=== PATIENT | female | born 1970 | race Caucasian/White ===

== ENCOUNTER 2016-04-22 22:11 | Inpatient (IN) | payer OTHER ==
--- NOTE | ~2016-04-22 | CO ---
Unit #: [id number] #: [id number] Patient: ALISA GAUTHIER [id number] [place] [address] [id number] I MR#: [id number] NAME: ALISA GAUTHIER ROOM: P178 Age: 45 Sex: F Admission Date: 04/22/2016 : 1970 Attending Physician: Rodrick Torres M.D. Primary Care Physician: Primary Care Physician No Consultation Date: 04/23/2016 CONSULTATION REPORT SUBJECTIVE Alisa is a 45-year-old who had reported to nursing staff that she was vomiting blood and had blood in her stools. Nursing staff did not confirm any of this. When I spoke to Ms. Bentley, she denied all of these concerns. Nursing staff can let us know if she has any further complaints/concerns. Dictated by... Stella Garcia P.A.-C. for [place]/jonathon TD: 04/26/2016 20:07 JOB #: [id number] CONSULTATION REPORT X Stella Garcia CONSULTATION REPORT
--- NOTE | ~2016-04-22 | PN ---
Unit #: [id number] #: [id number] Patient: ALISA GAUTHIER [id number] [facility] [address] [place] [address] [id number] I MR#: [id number] NAME: ALISA GAUTHIER. ROOM: P178 Age: 45 Sex: F Admission Date: 04/22/2016 : 1970 Attending Physician: Rodrick Torres M.D. Admitting Physician: Rodrick Torres M.D. Primary Care Physician: Primary Care Physician Marlyn ALLEN PROGRESS NOTES DATE 04/25/2016 DISCUSSION Ms. Goins is a 45-year-old white female with mood disorder and substance abuse who was seen today and chart was reviewed and case was discussed with the staff. She has been anxious, withdrawn though has not shown any agitation, irritability and has been calm and cooperative with treatment recommendations as she has been taking medications and tolerating them fairly well with no reported side effects. MENTAL STATUS EXAMINATION Middle-aged white female who was casually dressed with fair personal hygiene, appears to be in no acute distress or discomfort. She was awake and alert on interaction with intact orientation. Her mood was anxious with congruent affect. She denies any suicidal or homicidal ideations. Her insight and judgement remains slightly impaired. TREATMENT PLAN 1. We will continue her on her current medications and treatment protocol. We will monitor her response to the medications and make further adjustments as needed. 2. We will continue to follow up. Dictated by... [place]ros/candelario TD: 04/27/2016 02:07 JOB #: [id number] Unit #: [id number] #: [id number] Patient: ALISA GAUTHIER ALEJANDRO PROGRESS NOTES X Rodrick Torres MD PROGRESS NOTE
--- NOTE | ~2016-04-22 | DS ---
Unit #: [id number] #: [id number] [facility]: [facility] [id number] [facility] [address] [place] [address] [id number] I MR#: [id number] NAME: ALISA GAUTHIER ROOM: 78 Age: 45 Sex: F Admission Date: 04/22/2016 : 1970 Discharge Date: 04/26/2016 Attending Physician: Rodrick Torres M.D. Primary Care Physician: Primary Care Physician No DISCHARGE SUMMARY IDENTIFYING DATA Ms. Gauthier is a 45-year-old single white female who was self-referred to the hospital. DISCHARGE DIAGNOSES Psychiatric: Major depressive disorder, recurrent, moderate, without psychotic features; alcohol dependence, moderate and acute withdrawals; cannabis abuse, moderate. Medical: Hepatitis C. Stressors: Moderate psychosocial stressors. HISTORY OF PRESENT ILLNESS Please see initial psychiatric evaluation for details. PAST PSYCHIATRIC HISTORY Please see initial psychiatric evaluation for details. PAST MEDICAL HISTORY Please see initial psychiatric evaluation for details. HOSPITAL COURSE The patient was admitted to the adult chemical dependency and psychiatric unit at [facility] nadia Savage and was oriented to the hospital environment. Routine p.r.n. medications were initiated, and she was started on alcohol detox protocol and was closely monitored. She was taking the medications regularly and was tolerating them fairly well and was able to show a decent therapeutic response and was able to come out of the detox without any complications and was willing to continue treatment on an outpatient basis and as such, it was decided that she will be discharged home and will continue treatment on an outpatient basis. DISCHARGE MEDICATIONS Celexa 40 mg a day for depression. DISCHARGE CONDITION Stable. PROGNOSIS Fair. Dictated by... Rodrick Torres M.D. Unit #: [id number] #: [id number] Patient: ALISA GAUTHIER IAA/modl TD: 04/26/2016 06:57 JOB #: [id number] DISCHARGE SUMMARY X Rodrick Torres MD X DISCHARGE SUMMARY
--- NOTE | ~2016-04-22 | PA ---
Unit #: [id number] #: [id number] Patient: ALISA GAUTHIER [id number] [facility] [address] [place] [address] [id number] I MR#: [id number] NAME: ALISA GAUTHIER. ROOM: P178 Age: 45 Sex: F Admission Date: 04/22/2016 : 1970 Date of Assessment: Attending Physician: Rodrick Torres M.D. Admitting Physician: Rodrick Torres M.D. Primary Care Physician: Primary Care Physician No PSYCHIATRIC ASSESSMENT DATE OF SERVICE 04/23/2016. IDENTIFYING DATA Ms. Gauthier is a 45-year-old single white female who is a resident of [place], [place] and was self-referred to the hospital and upon presentation was accompanied by her friend. CHIEF COMPLAINT "I'm depressed. I'm having suicidal thoughts." HISTORY OF PRESENT ILLNESS Ms. Gauthier is a 45-year-old white female with history of mood disorder, who was brought to the hospital by her sister for suicidal ideation and plan to either cut her wrist or shoot herself with a gun. The patient reports that she relapsed on alcohol after 97 days of being sober and that she relapsed because she has no support system. She reports significant depressive symptoms, disturbed sleep, psychomotor retardation, poor energy level, feelings of hopelessness and helplessness, and suicidal ideations with intent and plan and as such, recommendation for inpatient level of care for safety and stabilization was made and the patient was stepped up to the inpatient unit. SUBSTANCE ABUSE HISTORY The patient reports extensive history of substance abuse and dependence including experimentation with methamphetamine, opiates, and cannabis and alcohol and currently alcohol has been her drug of choice. She reports that she has been drinking a fifth of liquor a day and has also been smoking cannabis along with that. PAST PSYCHIATRIC HISTORY The patient has had history of inpatient and outpatient psychiatric and chemical dependency treatment. Review of the medical records indicate that she has been diagnosed and treated for mood disorder and is currently on Celexa 40 mg a day. PAST MEDICAL HISTORY Hepatitis C. ALLERGIES Penicillin. PERSONAL AND SOCIAL HISTORY Unit #: [id number] #: [id number] Patient: ALISA GAUTHIER A 45-year-old white female who reports that she is single, unemployed, and lives at home with her sister and has poor social support system. MENTAL STATUS EXAMINATION Middle-aged white female who was casually dressed with fair personal hygiene, appears to be in no acute distress or discomfort. She was awake and alert on interaction with intact orientation to time, place, and person. Her mood was anxious and depressed with a congruent affect. Her speech was slow and goal directed. She reports having suicidal ideations, but denies any homicidal ideations, and also denies any auditory or visual hallucinations. Her insight and judgment remain significantly impaired. DIAGNOSTIC IMPRESSION Psychiatric: Major depressive disorder, recurrent, moderate, without psychotic features; alcohol dependence, moderate and acute withdrawals; cannabis abuse, moderate. Medical: Hepatitis C. Stressors: Moderate psychosocial stressors. TREATMENT PLAN 1. The patient has presented with history of substance abuse and mood disorder, and has been decompensating and will need inpatient hospitalization for detoxification, and safety, and stabilization. We will start her back on her home medications and we will also start her on alcohol detox protocol. We will start her back on Celexa as well. 2. Supportive therapy was provided to the patient. 3. Safe, structured, and nourishing environment will be provided. ESTIMATED LENGTH OF STAY 5 to 7 days. ABILITY TO HELP SELF Limited. WILLINGNESS TO HELP SELF The patient appears to be willing to help self. STRENGTHS 1. Communicative. 2. Cooperative. PROBLEMS 1. Chronic dysphoric symptoms. 2. Chronic chemical dependency. 3. Poor social support system. DISCHARGE CRITERIA This will be contingent upon the patient's ability to go through detox without having any significant withdrawal symptoms as well as her ability to stay safe to herself, particularly after discharge from the hospital. Dictated by... [place]ros/jonathon TD: 04/23/2016 12:42 Unit #: [id number] #: [id number] Patient: ALISA GAUTHIER JOB #: [id number] PSYCHIATRIC ASSESSMENT X Rodrick Torres MD X PSYCHIATRIC ASSESSMENT
--- NOTE | ~2016-04-22 | HP ---
Unit #: [id number] #: [id number] Patient: ALISA GAUTHIER [id number] [place] [address] [id number] I MR#: [id number] NAME: ALISA GAUTHIER. ROOM: P178 Age: 45 Sex: F Admission Date: 04/22/2016 : 1970 Attending Physician: Rodrick Torres M.D. Admitting Physician: Rodrick Torres M.D. Primary Care Physician: Primary Care Physician No HISTORY AND PHYSICAL HISTORY OF PRESENT ILLNESS Alisa is a 45 year old admitted to [facility] because of her abuse of alcohol. PAST MEDICAL HISTORY 1. Long history of alcohol abuse. 2. Hepatitis C. 3. History of cervical dysplasia. PAST SURGICAL HISTORY Nothing reported. ALLERGIES Penicillin. SOCIAL HISTORY Smokes 1 pack per day. Drinks a fifth of vodka on a daily basis. Denies history of poly-illicit substance abuse. FAMILY HISTORY Medically noncontributory. REVIEW OF SYSTEMS CONSTITUTIONAL: No fever or chills. HEENT: Denies any sore throat, ear pain or runny nose. CARDIOVASCULAR: Denies chest pain, irregular heart rhythm or palpitations. CHEST: Denies shortness of breath or cough. No hemoptysis. GASTROINTESTINAL: Denies nausea, vomiting, diarrhea or chronic constipation. ENDOCRINE: Denies history of increased thirst or urination. No recent significant weight loss or gain. GENITOURINARY: Denies dysuria, frequency, or hematuria. SKIN: Denies any rashes. HEMATOLOGIC: Denies history of increased bleeding or bruising. MUSCULOSKELETAL: Denies any hot, swollen joints. No generalized muscle pain. NEUROLOGIC: Denies problems with vision or speech. No frequent, severe headaches. No numbness, tingling or weakness in any extremities. Denies loss of bladder or bowel control. CURRENT MEDICATIONS 1. Detox protocol. 2. Celexa 40 mg daily. Unit #: [id number] #: [id number] Patient: ALISA GAUTHIER PHYSICAL EXAMINATION GENERAL: Alert, well-nourished, in no apparent distress. VITAL SIGNS: Blood pressure 113/56, heart rate 80, respirations 16, temperature 98.6. SKIN: Warm and dry without rash or lesion. HEENT: Normocephalic. TMs not viewed. Oral and nasal passages clear. Conjunctivae clear. PERRLA. EOMs intact. NECK: Supple without lymphadenopathy or thyromegaly. HEART: Regular rate and rhythm without murmur. LUNGS: Clear. ABDOMEN: Soft, nontender. : Not done. EXTREMITIES: No evidence of cyanosis, clubbing or edema. Moves all without focal deficit. NEUROLOGICAL: Unable to complete extended exam. She does move all extremities without focal deficit. Hand lead setter is equal and gait is normal. IMPRESSION Psychiatric admission. RECOMMENDATIONS PSYCHIATRIC: Per psychiatrist. MEDICAL: See no contraindications to participate in facility's activities. MEDICAL PROGNOSIS Good. MEDICAL CONDITION Stable. Dictated by... Stella Garcia P.A.-C. for [place]/seble TD: 04/23/2016 19:57 JOB #: [id number] HISTORY AND PHYSICAL X Stella Garcia X HISTORY AND PHYSICAL
--- NOTE | ~2016-04-22 | PN ---
Unit #: [id number] #: [id number] Patient: ALISA GAUTHIER [id number] [facility] [address] [place] [address] [id number] I MR#: [id number] NAME: ALISA GAUTHIER. ROOM: P178 Age: 45 Sex: F Admission Date: 04/22/2016 : 1970 Attending Physician: Rodrick Torres M.D. Admitting Physician: Rodrick Torres M.D. Primary Care Physician: Primary Care Physician Marlyn ALLEN PROGRESS NOTES DATE April 24, 2016 DISCUSSION Ms. Gauthier is a 45-year-old white female, who was seen today and chart was reviewed and the case was discussed with the staff. She has been anxious, withdrawn, and rather seclusive to herself. She appears to be in distress and discomfort. Meanwhile, she has been taking the medications and tolerating them fairly well with no reported side effects. MENTAL STATUS EXAMINATION Middle-aged white female, who was casually dressed with fair personal hygiene and appears to be in no acute distress or discomfort. The patient was awake and alert on interaction with intact orientation. Her mood was anxious and depressed with a congruent affect. Her speech is slow and goal-directed. She denies any suicidal or homicidal ideations, and also denies any auditory or visual hallucinations. Her insight and judgment remain slightly impaired. TREATMENT PLAN 1. We will continue her on her current medications and treatment protocol, and will monitor her response to the medications, and make further adjustments as needed. 2. We will continue to followup. Dictated by... [place] Barros/sagar TD: 04/26/2016 07:46 JOB #: [id number] Unit #: [id number] #: [id number] Patient: ALISA GAUTHIERALEX PROGRESS NOTES X Rodrick Torres MD PROGRESS NOTE
[2016-04-23 12:29] LABS: BASOPHIL% 0.5 % (0-2.5); EOSINOPHIL# 0.1 X10e3 (0-0.7); EOSINOPHIL% 1.4 % (0.0-7.0); HEMATOCRIT 38.9 % (35.0-45.0); LYMPHOCYTE# 1.6 X10e3 (1.0-3.5); LYMPHOCYTE% 16.6 % (17.0-45.0); MEAN CELL VOLUME 85.2 FL (83-96); MEAN CORPUSCULAR HEMOGLOBIN 28.4 PG (28-34); MEAN CORPUSCULAR HGB CONC 33.4 g/dL (30-36); MEAN PLATELET VOLUME 8.7 FL (6.5-11.5); MONOCYTE# 0.6 X10e3 (0-1.0); NEUTROPHIL# 7.3 X10e3 (1.5-7.1); NEUTROPHIL% 75.5 % (40-75); PLATELET COUNT 294 X10e3 (140-420); RED BLOOD COUNT 4.57 X10e (3.90-5.30); RED CELL DISTRIBUTION WIDTH 13.9 % (11.0-15.5); WHITE BLOOD COUNT 9.7 X10e3 (4.0-10.5)
[2016-04-23 12:39] LABS: DIFF IND NO
[2016-04-23 12:44] LABS: ALBUMIN SERUM 3.7 g/dL (3.5-5.0); ALKALINE PHOSPHATASE 86 U/L (32-92); ALT (SGPT) 287 U/L (10-40); AST (SGOT) 252 U/L (10-42); BILIRUBIN,TOTAL 0.6 mg/dL (0.2-2.0); BLOOD UREA NITROGEN 11 mg/dL (9-23); CARBON DIOXIDE 28 mmol/L (22-31); CHLORIDE 104 mmol/L (100-111); CREATININE SERUM 0.5 mg/dL (0.6-1.4); GLOM FILT RATE Estimated ABOVE60 mL/min (>60); GLUCOSE FASTING 78 mg/dL (70-110); POTASSIUM 4.1 mmol/L (3.5-5.1); PROTEIN TOTAL SERUM 6.9 g/dL (6.0-8.3); SODIUM 137 mmol/L (135-145)
[2016-04-23 12:53] LABS: THYROID STIMULATING HORMONE 0.76 uIU/ml (0.34-5.60)
[2016-04-23 13:00] LABS: FREE THYROXIN (T4) 1.03 ng/dL (0.58-1.64)
== END 2016-04-26 09:33 | disposition home or self-care (01) | DRG 885 ==
LOC: P1E 22:11
PROVIDERS: Psychiatry & Neurology Psychiatry
PROC: HZ2ZZZZ Detoxification Services for Substance Abuse Treatment (ICD-10-PCS; principal; 2016-04-22)
DX: F33.1 Major depressive disorder, recurrent, moderate (principal); F10.239 Alcohol dependence with withdrawal, unspecified; F12.10 Cannabis abuse, uncomplicated; B19.20 Unspecified viral hepatitis C without hepatic coma; F17.200 Nicotine dependence, unspecified, uncomplicated; Z88.0 Allergy status to penicillin
CPT/HCPCS: 80053; 84439; 84443; 85025; 86592; J2550

== ENCOUNTER 2016-05-09 19:59 | Inpatient (IN) | payer MEDICAID ==
--- NOTE | ~2016-05-09 | PN ---
Unit #: [id number] #: [id number] Patient: ALISA GAUTHIER [id number] [facility] [address] [place] [address] [id number] I MR#: [id number] NAME: ALISA GAUTHIER. ROOM: P176 Age: 45 Sex: F Admission Date: 05/09/2016 : 1970 Attending Physician: Rodrick Torres M.D. Admitting Physician: Rodrick Torres M.D. Primary Care Physician: Primary Care Physician Marlyn CARRASQUILLO NOTES DATE OF SERVICE 05/13/2016 DISCUSSION Ms. Gauthier is a 45-year-old white female who was seen today. Chart was reviewed and case was discussed with staff. She has been anxious, withdrawn, and has not shown any agitation or irritability and has been cooperative with treatment recommendations as she has been taking the medications and tolerating them fairly well. MENTAL STATUS EXAMINATION Middle-aged white female who is casually dressed with fair personal hygiene, appears to be in no acute distress or discomfort. She was awake and alert on interaction with intact orientation. Her mood is anxious with congruent affect. Speech is slow and goal-directed. She reports having suicidal ideations but denies any homicidal ideations and also denies any auditory or visual hallucinations. Her insight and judgment remain slightly impaired. TREATMENT PLAN 1. We will continue her on her current medications and treatment protocol. We will monitor her response to the medications and make further adjustments as needed. 2. We will continue to follow up. Dictated by... [place]ros/karang TD: 05/14/2016 09:17 JOB #: [id number] Unit #: [id number] #: [id number] Patient: ALISA GAUTHIER [facility] PROGRESS NOTES X Rodrick Torres MD PROGRESS NOTE
--- NOTE | ~2016-05-09 | PN ---
Unit #: [id number] #: [id number] Patient: ALISA GAUTHIER [id number] [facility] [address] [place] [address] [id number] I MR#: [id number] NAME: ALISA GAUTHIER ROOM: P180 Age: 45 Sex: F Admission Date: 05/09/2016 : 1970 Attending Physician: Rodrick Torres M.D. Admitting Physician: Rodrick Torres M.D. Primary Care Physician: Primary Care Physician Marlyn CARRASQUILLO NOTES DATE OF SERVICE: 05/11/2016 SUBJECTIVE Ms. Shearer is a 45-year-old white female, who was seen today and chart was reviewed, and case was discussed with the staff. She has been anxious, withdrawn, though has not shown any agitation or irritability, and has been cooperative with treatment recommendations as she has been taking medications and has been coming to therapy groups and has been participating. MENTAL STATUS EXAMINATION Middle-aged white female, who was casually dressed with fair personal hygiene, appears to be in no acute distress or discomfort. She was awake and alert on interaction with intact orientation. Her mood was anxious with a congruent affect. She denies any suicidal or homicidal ideation. Her insight and judgment remain slightly impaired. TREATMENT PLAN We will continue her on her current treatment protocol. We will monitor her response make further adjustments as needed. Dictated by... [place] Barros/jonathon TD: 05/12/2016 06:53 JOB #: [id number] ALEJANDRO CARRASQUILLO NOTES X Rodrick Torres MD PROGRESS NOTE
--- NOTE | ~2016-05-09 | PN ---
Unit #: [id number] #: [id number] Patient: ALISA GAUTHIER [id number] [facility] [address] [place] [address] [id number] I MR#: [id number] NAME: ALISA GAUTHIER. ROOM: P180 Age: 45 Sex: F Admission Date: 05/09/2016 : 1970 Attending Physician: Rodrick Torres M.D. Admitting Physician: Rodrick Torres M.D. Primary Care Physician: Primary Care Physician Marlyn CARRASQUILLO NOTES DATE 05/12/2016 DISCUSSION Ms. Gauthier is a 45-year-old white female who was seen today and chart was reviewed and case was discussed with the staff. She was not feeling good and has been complaining of being anxious, depressed and suicidal and (1)____ uncomfortable and unable to sleep at night and was seemed to be shaky, restless and rubbing all over her body and unable to sit still and exhibiting a lot of anxiety. MENTAL STATUS EXAMINATION Middle-aged white female who was casually dressed with fair personal hygiene, appears to be in no acute distress or discomfort. She was awake and alert on interaction with intact orientation. Her mood was anxious with congruent affect. Her speech was slow and goal-directed. She reports having suicidal ideation but denies any homicidal ideations. Also, denies any auditory or visual hallucinations. Her insight and judgement remains slightly impaired. TREATMENT PLAN 1. We will continue her on her current medications and treatment protocol. We will monitor her response and make further adjustments as needed. 2. We will continue to follow up. Dictated by... [place] Barros/candelario TD: 05/12/2016 21:40 JOB #: [id number] Unit #: [id number] #: [id number] Patient: ALISA GAUTHIER ALEJANDRO CARRASQUILLO NOTES X Rodrick Torres MD PROGRESS NOTE
--- NOTE | ~2016-05-09 | PN ---
Unit #: [id number] #: [id number] Patient: ALISA GAUTHIER [id number] [facility] [address] [place] [address] [id number] I MR#: [id number] NAME: ALISA GAUTHIER ROOM: P176 Age: 45 Sex: F Admission Date: 05/09/2016 : 1970 Attending Physician: Rodrick Torres M.D. Admitting Physician: Rodrick Torres M.D. Primary Care Physician: Primary Care Physician Marlyn CARRASQUILLO NOTES DATE OF SERVICE: 05/14/2016 SUBJECTIVE Ms. Gauthier is a 35-year-old white female, who was seen today and chart was reviewed, and case was discussed with the staff. She has been anxious, withdrawn, though has not shown any agitation or irritability, and has been cooperative with treatment recommendations and has been taking the medications and tolerating them fairly well with no reported side effects. MENTAL STATUS EXAMINATION Middle-aged white female, who was casually dressed with fair personal hygiene, appears to be in no acute distress or discomfort. She was awake and alert on interaction with intact orientation. Her mood was anxious with a congruent affect. She denies any suicidal or homicidal ideations, and also denies any auditory or visual hallucinations. Her insight and judgment remain slightly impaired. TREATMENT PLAN 1. We will continue her on her current medications and treatment protocol. We will monitor her response to the medications and make further adjustments as needed. 2. We will continue to follow up. Dictated by... [place] Barros/jonathon TD: 05/14/2016 23:37 JOB #: [id number] [facility] PROGRESS NOTES X Rodrick Torres MD PROGRESS NOTE
--- NOTE | ~2016-05-09 | DS ---
Unit #: [id number] #: [id number] [facility]: [facility] [id number] [facility] [address] [place] [address] [id number] I MR#: [id number] NAME: ALISA GAUTHIER ROOM: P176 Age: 45 Sex: F Admission Date: 05/09/2016 : 1970 Discharge Date: 05/17/2016 Attending Physician: Rodrick Torres M.D. Primary Care Physician: Primary Care Physician No DISCHARGE SUMMARY IDENTIFYING DATA Ms. Gauthier is a 45-year-old single white female, who is a resident of [place], [place], and was stepped up to the inpatient unit from the outpatient treatment program. DISCHARGE DIAGNOSES Psychiatric: Major depressive disorder, recurrent, moderate, without psychotic features; opioid abuse, moderate; alcohol abuse, moderate. Medical: None. Stressors: Moderate psychosocial stressors. HISTORY OF PRESENT ILLNESS Please see initial psychiatric evaluation for details. PAST PSYCHIATRIC HISTORY Please see initial psychiatric evaluation for details. PAST MEDICAL HISTORY Please see initial psychiatric evaluation for details. HOSPITAL COURSE The [facility] and was oriented to the hospital environment. Routine p.r.n. medications were initiated, and she was started back on her home medication and was seen to be exhibiting some significant depressive symptoms and rather had a complicated course of illness with persistent depression, anxiety, and medications were adjusted regularly and once she started showing a therapeutic response, it was decided that she will be discharged home and will continue treatment on an outpatient basis. DISCHARGE MEDICATIONS Prozac 40 mg a day for depression, Seroquel 200 mg at bedtime for depression, Neurontin 400 mg t.i.d. for anxiety. DISCHARGE CONDITION Stable. PROGNOSIS Fair. Dictated by... Rodrick Torres M.D. Unit #: [id number] #: [id number] Patient: ALISA GAUTHIER IAA/modl TD: 05/17/2016 07:01 JOB #: [id number] DISCHARGE SUMMARY X Rodrick Torres MD X DISCHARGE SUMMARY
--- NOTE | ~2016-05-09 | PA ---
Unit #: [id number] #: [id number] Patient: ALISA GAUTHIER [id number] [place] [address] [id number] I MR#: [id number] NAME: ALISA GAUTHIER ROOM: P180 Age: 45 Sex: F Admission Date: 05/09/2016 : 1970 Date of Assessment: 05/10/2016 Attending Physician: Rodrick Torres M.D. Admitting Physician: Rodrick Torres M.D. Primary Care Physician: Primary Care Physician No PSYCHIATRIC ASSESSMENT DATE OF SERVICE 05/10/2016. IDENTIFYING DATA Ms. Gauthier is a 45-year-old single white female who is a resident of [place], [place] and was recently discharged from care and is currently active in the intensive outpatient treatment program at [facility] and was self-referred to the hospital on a voluntary basis. CHIEF COMPLAINT "I'm going through a lot, I tried to cut myself to kill myself." HISTORY OF PRESENT ILLNESS Ms. Gauthier is a 45-year-old white female with history of mood disorder and substance abuse, who was brought to the hospital accompanied by her sister. Upon presentation, the patient reports increasing depression that she tried to kill herself and "my sister stopped me today, my niece was jumped away to all people, also family stressors going on, I'm currently going to the outpatient program here." The patient reports increasing depression, anxiety, disturbed sleep, psychomotor agitation, feelings of hopelessness and helplessness, and suicidal ideations with intent and plan. SUBSTANCE ABUSE HISTORY The patient reports history of alcohol, cannabis, opioids, and amphetamine abuse, and reports that she has been drinking a fifth of vodka a day with last use being a couple of weeks ago and has a history of opioid abuse, though reports that she has been clean for the last few months. PAST PSYCHIATRIC HISTORY The patient has had a history of multiple inpatient psychiatric hospitalizations at [facility], where she is currently active in the outpatient treatment program and has been diagnosed and treated for mood disorder and has been a combination of Prozac and trazodone. PAST MEDICAL HISTORY The patient's medical history is significant for hepatitis C. ALLERGIES Penicillin. PERSONAL AND SOCIAL HISTORY A 45-year-old white female who reports that she is single and lives at home with 2 sisters and has poor social support system. Unit #: [id number] #: [id number] Patient: ALISA GAUTHIER MENTAL STATUS EXAMINATION Middle-aged white female who was casually dressed with fair personal hygiene, appears to be in no acute distress or discomfort. She was awake and alert on interaction with intact orientation to time, place, and person. Her mood was anxious and depressed with a congruent affect. Her speech was slow and goal directed. She reports having suicidal ideation, but denies any homicidal ideations and also denies any auditory or visual hallucinations. Her insight and judgment remain significantly impaired. DIAGNOSTIC IMPRESSION Psychiatric: Major depressive disorder, recurrent, moderate, without psychotic features; opioid abuse, moderate; alcohol abuse, moderate. Medical: None. Stressors: Moderate psychosocial stressors. TREATMENT PLAN 1. The patient has presented with a history of substance abuse and mood disorder and has been decompensating and will need inpatient hospitalization for safety and stabilization. We will start her back on her home medications. We will adjust the medications and monitor her response. 2. Supportive therapy was provided to the patient. ESTIMATED LENGTH OF STAY 5 to 7 days. ABILITY TO HELP SELF Limited. WILLINGNESS TO HELP SELF The patient appears to be willing to help self. STRENGTHS 1. Communicative. 2. Cooperative. PROBLEMS 1. Chronic dysphoric symptoms. 2. Poor social support system. DISCHARGE CRITERIA This will be contingent upon the patient's ability to show resolution of her depression and anxiety as well as her ability to stay safe to herself, particularly after discharge from the hospital. Dictated by... New Barros/jonathon TD: 05/10/2016 23:36 JOB #: [id number] Unit #: [id number] #: [id number] Patient: ALISA GAUTHIER PSYCHIATRIC ASSESSMENT X Rodrick Torres MD PSYCHIATRIC ASSESSMENT
--- NOTE | ~2016-05-09 | TN ---
Unit #: [id number] #: [id number] Patient: ALISA GAUTHIER [id number] [facility] [address] [place] [address] [id number] I MR#: [id number] NAME: ALISA GAUTHIER ROOM: P176 Age: 45 Sex: F Admission Date: 05/09/2016 : 1970 Discharge Date: 05/17/2016 Attending Physician: Rodrick Torres M.D. Primary Care Physician: Primary Care Physician No LOC TRANSFER NOTE DATE OF SERVICE: 05/18/2016 IDENTIFYING DATA Ms. Gauthier is a 45-year-old single white female, who was stepped down to the outpatient treatment program from the adult inpatient psychiatric unit, where she was hospitalized under my care from 05/09/2016 through 05/17/2016 and was brought to the hospital with initially alcohol dependence, was medically detoxed; however, she was complaining of persistent depression, anxiety, and suicidal ideations and as such, medications were adjusted and Prozac and Seroquel was initiated and she had a rather prolonged and lengthy course of hospitalization as she was duly diagnosed and once stabilized, she was stepped down to the outpatient treatment program. On evaluation by me today, the patient still seen to be rather withdrawn and somewhat tearful, though she reports that she is feeling much better and she felt that [facility] helped her a lot, and she benefitted from treatment and she needed that help. She is also on the list to go to a long-term rehab level of care as her therapist during the inpatient hospitalization made referral to couple of different rehab facilities including [facility] as well as at [facility] and he is awaiting response from them. Meanwhile, she reports that she has been staying sober and has a pre-safe and structured environment coming out of the hospital. She denies any suicidal or homicidal ideation. SUBSTANCE ABUSE HISTORY The patient has had a history of alcohol dependence and is currently clean and as such, she is referring to medical detox. PAST PSYCHIATRIC HISTORY The patient has had history of inpatient and outpatient psychiatric treatment and has been diagnosed and treated for mood disorder and is currently on a combination of Prozac and Seroquel and Neurontin. PAST MEDICAL HISTORY No acute or chronic medical illnesses. ALLERGIES No known medication allergies. PERSONAL AND SOCIAL HISTORY A 45-year-old white female, who reports that she is single, unemployed, and lives at home with her family and has fairly decent social support system. Unit #: [id number] #: [id number] Patient: ALISA GAUTHIER MENTAL STATUS EXAMINATION Middle-aged white female who was casually dressed with fair personal hygiene, appears to be in no acute distress or discomfort. She was awake and alert on interaction with intact orientation to time, place, and person. Her mood was anxious with congruent affect. Her speech was slow and goal directed. She denies any suicidal or homicidal ideations, and also denies any auditory or visual hallucinations. Her insight and judgment remain slightly impaired. DIAGNOSTIC IMPRESSION Psychiatric: Major depressive disorder, recurrent, moderate, without psychotic features; alcohol dependence, moderate. Medical: None. Stressors: Moderate psychosocial stressors. TREATMENT PLAN 1. The patient has presented with a history of mood disorder and has been decompensating and we will recommend enrolling her into the outpatient treatment program and maintaining on her current medications. We will monitor response and make further adjustments as needed. 2. Supportive therapy was provided to the patient. 3. Safe, structured, and nourishing environment will be reported. ESTIMATED LENGTH OF STAY 14 to 21 days. ABILITY TO HELP SELF Limited. WILLINGNESS TO HELP SELF The patient appears to be willing to help self. STRENGTHS 1. Communicative. 2. Cooperative. PROBLEMS 1. Chronic dysphoric symptoms. 2. Chronic chemical dependency. 3. Poor social support system. DISCHARGE CRITERIA This will be contingent upon the patient's ability to show resolution of her depression and anxiety and her ability to stay safe and sober, particularly after discharge from the program. Dictated by... New Barros/jonathon TD: 05/19/2016 04:23 JOB #: [id number] Unit #: [id number] #: [id number] Patient: ALISA GAUTHIER LOC TRANSFER NOTE Page 1 of 1 X Rodrick Torres MD X LOC TRANSFER NOTE
== END 2016-05-17 13:45 | disposition home or self-care (01) | DRG 885 ==
LOC: P1E 19:59 → POF 05-11 12:45 → P1E 05-11 12:51
PROC: HZ2ZZZZ Detoxification Services for Substance Abuse Treatment (ICD-10-PCS; principal; 2016-05-09)
PROC: 3E0234Z Introduction of Serum, Toxoid and Vaccine into Muscle, Percutaneous Approach (ICD-10-PCS; 2016-05-09)
DX: F33.1 Major depressive disorder, recurrent, moderate (principal); F11.20 Opioid dependence, uncomplicated; R45.851 Suicidal ideations; F10.239 Alcohol dependence with withdrawal, unspecified; Z88.0 Allergy status to penicillin; F17.210 Nicotine dependence, cigarettes, uncomplicated; F12.10 Cannabis abuse, uncomplicated; Z23 Encounter for immunization
CPT/HCPCS: 90688

== ENCOUNTER 2016-05-22 18:43 | Inpatient (IN) | payer MEDICAID ==
--- NOTE | ~2016-05-22 | DS ---
Unit #: [id number] #: [id number] Patient: ALISA GAUTHIER [id number] [place] [address] [id number] I MR#: [id number] NAME: ALISA GAUTHIER ROOM: P254 Age: 45 Sex: F Admission Date: 05/22/2016 : 1970 Discharge Date: 05/26/2016 Attending Physician: Rodrick Torres M.D. Primary Care Physician: Primary Care Physician No DISCHARGE SUMMARY IDENTIFYING DATA Ms. Gauthier is a 45-year-old single white female who is a resident of [place], [place] and is known to us from previous encounter, and was stepped up to the inpatient unit from the intensive outpatient treatment program. DISCHARGE DIAGNOSES Psychiatric: Bipolar disorder, most recent episode depressed, recurrent, moderate, without psychotic features; cannabis abuse, moderate; methamphetamine abuse, moderate. Medical: None. Stressors: Moderate psychosocial stressors. HISTORY OF PRESENT ILLNESS Please see initial psychiatric evaluation for details. PAST PSYCHIATRIC HISTORY Please see initial psychiatric evaluation for details. PAST MEDICAL HISTORY Please see initial psychiatric evaluation for details. HOSPITAL COURSE The patient was admitted to the adult psychiatric unit at [facility] and was oriented to the hospital environment. Routine p.r.n. medications were initiated, and she was started back on her home medications including her Prozac and Seroquel was closely monitored. She was initially seen to be very anxious, withdrawn, seclusive to herself and exhibiting significant depressive symptoms, and was able to come out of the depression without any complication, and was able to show a therapeutic response to the medications and was willing to continue treatment on an outpatient basis and was denying any further suicidal ideations, intent, or plan and is very well known to the intensive outpatient treatment program at [facility] and she was willing to go back to her therapy groups and as such, it was decided that the patient will be discharged home and will continue treatment on an intensive outpatient program at [facility] basis. DISCHARGE MEDICATIONS Prozac 40 mg a day for depression and Seroquel 200 mg a day at bedtime for depression. DISCHARGE CONDITION Stable. Unit #: [id number] #: [id number] Patient: ALISA GAUTHIER PROGNOSIS Fair. Dictated by... New Barros/jonathon TD: 05/26/2016 17:49 JOB #: [id number] DISCHARGE SUMMARY Page 1 of 1 X Rodrick Torres MD DISCHARGE SUMMARY
--- NOTE | ~2016-05-22 | PN ---
Unit #: [id number] #: [id number] Patient: ALISA GAUTHIER [id number] [facility] [address] [place] [address] [id number] MR#: [id number] NAME: ALISA GAUTHIER. ROOM: P254 Age: 45 Sex: F Admission Date: 05/22/2016 : 1970 Attending Physician: Rodrick Torres M.D. Admitting Physician: Rodrick Torres M.D. Primary Care Physician: Primary Care Physician Marlyn ALLEN PROGRESS NOTES DATE OF SERVICE 05/24/2016 DISCUSSION Mr. Gauthier is a 45-year-old white female who was seen today. Chart was reviewed and case was discussed with the staff. She has been anxious, withdrawn, depressed, and rather seclusive to herself and has been exhibiting some persistent depressive symptoms. Meanwhile, she has been taking the medications and tolerating them fairly well with no reported side effects. MENTAL STATUS EXAMINATION Middle-aged white female who is casually dressed with fair personal hygiene, appears to be in no acute distress or discomfort. The patient was awake and alert on interaction with intact orientation. Her mood is anxious and depressed with congruent affect. Speech is slow and goal-directed. She reports having suicidal ideation but denies any homicidal ideations. Her insight and judgment remain slightly impaired. TREATMENT PLAN 1. We will continue her on her current medications and treatment protocol. We will monitor her response and make further adjustments as needed. 2. We will continue to follow up. Dictated by... New Barros/karang TD: 05/25/2016 10:23 JOB #: [id number] Unit #: [id number] #: [id number] Patient: ALISA GAUTHIER PROGRESS NOTES Page 1 of 1 X Rodrick Torres MD PROGRESS NOTE
--- NOTE | ~2016-05-22 | HP ---
Unit #: [id number] #: [id number] Patient: ALISA GAUTHIER [id number] [place] [address] [id number] I MR#: [id number] NAME: ALISA GAUTHIER. ROOM: P254 Age: 45 Sex: F Admission Date: 05/22/2016 : 1970 Attending Physician: Rodrick Torres M.D. Admitting Physician: Rodrick Torres M.D. Primary Care Physician: Primary Care Physician No HISTORY AND PHYSICAL HISTORY OF PRESENT ILLNESS The patient is a 45-year-old female admitted to [address] [place] [address] on 05/22/3016 for suicidal ideations and polysubstance use. PAST MEDICAL HISTORY 1. Alcohol abuse 2. Hepatitis C 3. Cervical dysplasia 4. Nicotine dependence 5. Methamphetamine use PAST SURGICAL HISTORY 1. Hysterectomy 2. Left wrist SOCIAL HISTORY The patient is disabled. She smokes one pack of cigarettes daily. She has a history of alcohol abuse but denies current use. She uses 1/2 gram of meth per day. FAMILY MEDICAL HISTORY Noncontributory. ALLERGIES Penicillin CURRENT MEDICATIONS 1. Prozac 2. Neurontin 3. Seroquel 4. Trazodone REVIEW OF SYSTEMS CONSTITUTIONAL: No fever or chills. HEENT: Denies any sore throat, ear pain or runny nose. CARDIOVASCULAR: Denies chest pain, irregular heart rhythm or palpitations. CHEST: Denies shortness of breath or cough. No hemoptysis. GASTROINTESTINAL: Denies nausea, vomiting, diarrhea or chronic constipation. ENDOCRINE: Denies history of increased thirst or urination. No recent significant weight loss or gain. GENITOURINARY: Denies dysuria, frequency, or hematuria. Unit #: [id number] #: [id number] Patient: ALISA GAUTHIER SKIN: Denies any rashes. HEMATOLOGIC: Denies history of increased bleeding or bruising. MUSCULOSKELETAL: Denies any hot, swollen joints. No generalized muscle pain. NEUROLOGIC: Denies problems with vision or speech. No frequent, severe headaches. No numbness, tingling or weakness in any extremities. Denies loss of bladder or bowel control. PHYSICAL EXAM GENERAL: She is awake, alert and oriented in no acute distress. VITAL SIGNS: Temperature 98.0, heart rate 58, respiration 20, blood pressure 105/66. HEIGHT: 5'5". WEIGHT: 160 pounds. SKIN: Warm and dry without rash or lesion. HEENT: Normocephalic. TMs not viewed. Oral and nasal passages clear. Conjunctivae clear. PERRLA. EOMs intact. NECK: Supple without lymphadenopathy or thyromegaly. HEART: Regular rate and rhythm without murmur. LUNGS: Clear. ABDOMEN: Soft, nontender. : Not done. EXTREMITIES: No evidence of cyanosis, clubbing or edema. Moves all without focal deficit. NEUROLOGICAL: Grossly within normal limits. Cranial Nerves: II: Visual shabazz are intact. III, IV AND : Extraocular movements are intact. Pupils are equal, round and reactive to light. V: Facial sensation is grossly normal. VII: Facial movements and expression are normal. VIII: Auditory acuity grossly intact. IX, X: Uvula is midline. Phonation is normal. XI: Patient shrugs shoulders and turns head normally. XII: Tongue protrudes in the midline. Sensory and Motor Function: Sensory and motor sensation is grossly normal. Motor: moves all extremities well. IMPRESSION 1. Psychiatric admission. 2. History of alcohol abuse use. 3. Hepatitis C. 4. History of cervical dysplasia. 5. Nicotine dependence. 6. methamphetamine use. RECOMMENDATIONS Psychiatric per psychiatrist. MEDICAL: No contraindication to participate in facility activities. MEDICAL PROGNOSIS Good. MEDICAL CONDITION Stable. Unit #: [id number] #: [id number] Patient: ALISA GAUTHIER Dictated by... Ben Cardenas/candelario TD: 05/23/2016 21:58 JOB #: [id number] HISTORY AND PHYSICAL Page 1 of 1 X BEREKET ALFORD APRN HISTORY AND PHYSICAL
--- NOTE | ~2016-05-22 | PA ---
Unit #: [id number] #: [id number] Patient: ALISA GAUTHIER [id number] [facility] [address] [place] [address] [id number] I MR#: [id number] NAME: ALISA GAUTHIER ROOM: P254 Age: 45 Sex: F Admission Date: 05/22/2016 : 1970 Date of Assessment: 05/23/2016 Attending Physician: Rodrick Torres M.D. Admitting Physician: Rodrick Torres M.D. Primary Care Physician: Primary Care Physician No PSYCHIATRIC ASSESSMENT DATE OF SERVICE 05/23/2016. IDENTIFYING DATA Ms. Gauthier is a 45-year-old single white female, who is a resident of [place], [place], and is known to us from previous encounter and was recently discharged from my care and was stepped down to the outpatient treatment program; however, she was self-referred back to the hospital. CHIEF COMPLAINT "I'm just going through a lot, I was trying to get into a [facility] and they said they could not have me until I detox and I'm not on drugs." HISTORY OF PRESENT ILLNESS Ms. Gauthier is a 45-year-old white female with history of substance abuse and mood disorder, who was self-referred to the hospital. Upon presentation, she stated that she has been in a lot of stress and that she is trying to get into a [facility] and they did not take her and they want her to detox, but that she is not on drugs since she got out of the hospital, "I tried to move all of my stuff from storage, I went off and said that I was going to kill myself and stuff and I feel like I'm going to harm someone or myself if I don't get any help, so I came here. I went into hysterical and started throwing things and started yelling. I had a knife in my hand and I put it back, but I was going to cut myself, I got problems, I like that because I have done it before. I'm losing everything and everybody is moving away. My sister, she is all I got. I do have my son, but he lives in [place]. I have been planning for 6 months to go on the trip with my sister and now I cannot go because she said I need mental help. My son said that I can go and stay with him, but I was trying to go to a [facility] and I'm on the waiting list for new places, one of them is in [place]. I don't want to go use and have everybody on me, but I'm losing it. The last time I used anything was in February, that was meth, but I have had a thought about 2 weeks ago. I have not been sleeping good. I have been taking my medication. I get really scared sometimes, I get these panic attacks and I freak out sometimes and I get really paranoid. I think someone is trying to kill me or something; it has started to happen a lot recently and lately, I have had several, my heart rate gets really high and I start shaking and I don't know what is wrong with me. Sometimes, I think that I see things and when I look it, it is no longer there, it is hard to explain." The patient was seen to be exhibiting significant depression, anxiety, irritability, restlessness, paranoia, visual hallucination, feelings of hopelessness and helplessness, and suicidal ideations and as such, a Unit #: [id number] #: [id number] Patient: ALISA GAUTHIER recommendation for inpatient level of care for safety and stabilization was made. SUBSTANCE ABUSE HISTORY The patient reports history of methamphetamine and cannabis abuse, but denies any ongoing substance abuse issues. PAST PSYCHIATRIC HISTORY The patient has had a history of multiple inpatient psychiatric hospitalizations at [facility] and has been diagnosed and treated for mood disorder and substance abuse and is currently on a combination of Prozac, Neurontin, Seroquel, and trazodone. PAST MEDICAL HISTORY Hepatitis C. ALLERGIES Penicillin. PERSONAL AND SOCIAL HISTORY A 45-year-old white female, who reports that she is single, unemployed, and is currently homeless and is trying to get into a [facility]. MENTAL STATUS EXAMINATION Middle-aged white female, who was casually dressed with a fair personal hygiene, appears to be in no acute distress or discomfort. She was awake and alert on interaction with intact orientation to time, place, and person. Her mood was anxious and depressed with a congruent affect. Her speech was slow and restricted in content. Her thought processes were disorganized with some looseness of associations and flight of ideas and suicidal ideations. Her insight and judgment remain significantly impaired. DIAGNOSTIC IMPRESSION Psychiatric: Bipolar disorder, most recent episode depressed, recurrent, moderate, without psychotic features; cannabis abuse, moderate; methamphetamine abuse, moderate. Medical: None. Stressors: Moderate psychosocial stressors. TREATMENT PLAN 1. The patient has presented with a history of substance abuse and mood disorder and has been decompensating and will need inpatient hospitalization for safety and stabilization. We will start her back on her home medications and we will adjust the medications and monitor response. 2. Supportive therapy was provided to the patient. 3. Safe, structured, and nourishing environment will be provided. ESTIMATED LENGTH OF STAY 4 to 5 days. ABILITY TO HELP SELF Limited. WILLINGNESS TO HELP SELF The patient appears to be willing to help self. STRENGTHS Unit #: [id number] #: [id number] Patient: ALISA GAUTHIER 1. Communicative. 2. Cooperative. PROBLEMS 1. Chronic dysphoric symptoms. 2. Chronic chemical dependency. 3. Poor social support system. DISCHARGE CRITERIA This will be contingent upon the patient's ability to show resolution of her depression and anxiety as well as her ability to stay safe to herself, particularly after discharge from the hospital. Dictated by... [place]ros/jonathon TD: 05/23/2016 14:19 JOB #: [id number] PSYCHIATRIC ASSESSMENT Page 1 of 1 X Rodrick Torres MD X PSYCHIATRIC ASSESSMENT
--- NOTE | ~2016-05-22 | PN ---
Unit #: [id number] #: [id number] Patient: ALISA GAUTHIER [id number] [facility] [address] [place] [address] [id number] I MR#: [id number] NAME: ALISA GAUTHIER. ROOM: P254 Age: 45 Sex: F Admission Date: 05/22/2016 : 1970 Attending Physician: Rodrick Torres M.D. Admitting Physician: Rodrick Torres M.D. Primary Care Physician: Primary Care Physician Marlyn ALLEN PROGRESS NOTES DATE OF SERVICE 05/25/2016 DISCUSSION Ms. Gauthier is a 45-year-old white female who was seen today. Chart was reviewed and case was discussed with staff. She has been anxious, withdrawn, depressed, and rather seclusive to herself and has been complaining of poor sleep and anxiety as well as her depression. Meanwhile, she has been taking the medications and tolerating them fairly well with no reported side effects. MENTAL STATUS EXAMINATION Middle-aged white female who is casually dressed with fair personal hygiene, appears to be in no acute distress or discomfort. She was awake and alert with impaired attention and concentration. Her mood is anxious and depressed with a congruent affect. Speech is slow and restricted in content. She reports having suicidal ideation but denies any homicidal ideations and also denies any auditory or visual hallucinations. Her insight and judgment remain slightly impaired. TREATMENT PLAN 1. We will continue her on her current medications and treatment protocol. We will monitor her response to the medications and make further adjustments as needed. 2. We will continue to follow up. Dictated by... Rodrick Torres M.D. IAA/bzg TD: 05/26/2016 10:16 JOB #: [id number] Unit #: [id number] #: [id number] Patient: ALISA GAUTHIER ABNERALEX PROGRESS NOTES Page 1 of 1 X Rodrick Torres MD PROGRESS NOTE
== END 2016-05-26 17:03 | disposition home or self-care (01) | DRG 885 ==
LOC: P2L 18:43
PROC: HZ2ZZZZ Detoxification Services for Substance Abuse Treatment (ICD-10-PCS; principal; 2016-05-22)
DX: F31.32 Bipolar disorder, current episode depressed, moderate (principal); R45.851 Suicidal ideations; F12.10 Cannabis abuse, uncomplicated; F15.10 Other stimulant abuse, uncomplicated; B19.20 Unspecified viral hepatitis C without hepatic coma; Z88.0 Allergy status to penicillin; F17.210 Nicotine dependence, cigarettes, uncomplicated; Z90.710 Acquired absence of both cervix and uterus

== ENCOUNTER 2016-05-30 10:46 | Inpatient (IN) | payer MEDICAID ==
--- NOTE | ~2016-05-30 | PN ---
Unit #: [id number] #: [id number] Patient: ALISA GAUTHIER [id number] [facility] [address] [place] [address] [id number] MR#: [id number] NAME: ALISA GAUTHIER ROOM: 16 Age: 45 Sex: F Admission Date: 05/30/2016 : 1970 Attending Physician: Rodrick Torres M.D. Admitting Physician: Rodrick Torres M.D. Primary Care Physician: Primary Care Physician Marlyn CARRASQUILLO NOTES DATE June 01, 2016 DISCUSSION Ms. Gauthier is a 45-year-old white female, with mood disorder and psychosis, and substance abuse, who was seen today and chart was reviewed and the case was discussed with the staff. Staff reports that the patient had a rough day yesterday with agitation and aggression, and acute psychosis and p.r.n. Thorazine had to be given. On approach the patient was, once again, seen to be in paper gown and disheveled, and quite disorganized and unable to carry on meaningful conversation and was seen to be out of touch with reality. She has been taking the medications and tolerating them fairly well but does not appear to be showing therapeutic response to the medications. MENTAL STATUS EXAMINATION Middle-aged white female, who was casually dressed with fair personal hygiene and appears to be in no acute distress or discomfort. The patient was awake and alert with impaired attention and concentration. Her mood is anxious and depressed with a congruent affect. Her speech is slow and restricted in content. Her thought processes are disorganized with some looseness of associations and paranoid ideations. Her insight and judgment remain significantly impaired. TREATMENT PLAN 1. We will continue her on her current medications and treatment protocol, and will monitor her response to the medications, and make further adjustments as needed. 2. We will continue to followup. Dictated by... New Barros/sagar TD: 06/02/2016 10:07 JOB #: [id number] Unit #: [id number] #: [id number] Patient: ALISA GAUTHIER PROGRESS NOTES Page 1 of 1 X Rodrick Torres MD PROGRESS NOTE
--- NOTE | ~2016-05-30 | PN ---
Unit #: [id number] #: [id number] Patient: ALISA GAUTHIER [id number] [facility] [address] [place] [address] [id number] I MR#: [id number] NAME: ALISA GAUTHIER. ROOM: P179 Age: 45 Sex: F Admission Date: 05/30/2016 : 1970 Attending Physician: Rodrick Torres M.D. Admitting Physician: Rodrick Torres M.D. Primary Care Physician: Primary Care Physician Marlyn ALLEN PROGRESS NOTES DATE 06/02/2016 DISCUSSION Ms. Gauthier is a 45-year-old white female who was seen today and chart was reviewed and case was discussed with the staff. She has been anxious, withdrawn and rather seclusive to herself. Meanwhile, she has been cooperative with treatment recommendations and has been taking medications and tolerating them fairly well with no reported side effects. MENTAL STATUS EXAMINATION Middle-aged white female who was casually dressed with marginal personal hygiene and appears to be in slight distress or discomfort. She was awake and alert on interaction with intact orientation. Her mood was anxious and depressed with congruent affect. Her speech is slow and goal-directed. She denies any suicidal or homicidal ideations. Her insight and judgement remains slightly impaired. TREATMENT PLAN 1. Will continue on current treatment protocol. Will monitor her response to medications and make further adjustments as needed. 2. Will continue to follow up. Dictated by... New Barros/seble TD: 06/02/2016 21:13 JOB #: [id number] Unit #: [id number] #: [id number] Patient: ALISA GAUTHIERALEX PROGRESS NOTES Page 1 of 1 X Rodrick Torres MD PROGRESS NOTE
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
--- NOTE | ~2016-05-30 | CO ---
Unit #: [id number] #: [id number] Patient: ALISA GAUTHIER [id number] [place] [address] [id number] I MR#: [id number] NAME: ALISA GAUTHIER ROOM: 16 Age: 45 Sex: F Admission Date: 05/30/2016 : 1970 Attending Physician: Rodrick Torres M.D. Primary Care Physician: Primary Care Physician No Consultation Date: 05/31/2016 CONSULTATION REPORT SUBJECTIVE Alisa is a 45-year-old who has complained of itchy, irritated eyes and mouth irritation over the past few days. We have been asked to assess and treat. OBJECTIVE GENERAL: Alert, well nourished, in no apparent distress. VITAL SIGNS: Blood pressure 130/70, heart rate 80, respirations 16, and temperature 98.6. HEENT: Normocephalic. Conjunctivae are slightly irritated bilaterally. No discharge. The buccal mucosa and tongue are without lesion. ASSESSMENT 1. Irritated conjunctivae bilaterally, very likely allergic. 2. The patient complains of mouth irritation. PLAN 1. Nystatin swish and swallow 15 mL p.o. t.i.d. x7 days. 2. Claritin 10 mg one p.o. daily. Dictated by... Pari Moreira/jonathon TD: 06/01/2016 14:37 JOB #: [id number] CONSULTATION REPORT Page 1 of 1 X Stella Garcia CONSULTATION REPORT
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
--- NOTE | ~2016-05-30 | PN ---
Unit #: [id number] #: [id number] Patient: ALISA GAUTHIER [id number] [facility] [address] [place] [address] [id number] I MR#: [id number] NAME: ALISA GAUTHIER ROOM: P116 Age: 45 Sex: F Admission Date: 05/30/2016 : 1970 Attending Physician: Rodrick Torres M.D. Admitting Physician: Rodrick Torres M.D. Primary Care Physician: Primary Care Physician Marlyn CARRASQUILLO NOTES DATE 05/31/2016 DISCUSSION Ms. Gauthier is a 45-year-old white female who was seen today and chart was reviewed and case was discussed with the staff. She has been anxious, withdrawn and seclusive to herself and has been acutely psychotic with significant paranoid delusions and behavior and agitation and aggression and had to be given p.r.n. Thorazine this morning to (1)____ psychosis and agitation and aggressive behavior. The patient is unkempt disheveled and unable to carry on a meaningful conversation and has been out of touch with reality. MENTAL STATUS EXAMINATION Middle-aged white female who was casually dressed with marginal personal hygiene, appears to be in no acute distress or discomfort. She was awake and alert with impaired attention and concentration. Her mood was anxious with congruent affect. Her speech was slow and restricted in content. Her thought processes were disorganized with some looseness of associations and paranoid ideation and delusional behavior. Her insight and judgement remains significantly impaired. TREATMENT PLAN 1. We will continue her on her current medications and treatment protocol. We will monitor her response and make further adjustments as needed. 2. We will continue to follow up. Dictated by... New Barros/candelario TD: 06/02/2016 04:21 JOB #: [id number] Unit #: [id number] #: [id number] Patient: ALISA GAUTHIER PROGRESS NOTES Page 1 of 1 X Rodrick Torres MD X PROGRESS NOTE
--- NOTE | ~2016-05-30 | DS ---
Unit #: [id number] #: [id number] Patient: ALISA GAUTHIER [id number] [facility] [address] [place] [address] [id number] I MR#: [id number] NAME: ALISA GAUTHIER. ROOM: P179 Age: 45 Sex: F Admission Date: 05/30/2016 : 1970 Discharge Date: 06/04/2016 Attending Physician: Rodrick Torres M.D. DISCHARGE SUMMARY IDENTIFYING DATA Ms. Gauthier is a 45-year-old single white female, who is a resident of [place], [place], and is well known to us from previous encounter, was recently discharged from my care last week and was self-referred back to the hospital. DISCHARGE DIAGNOSES Psychiatric: Bipolar disorder, most recent episode depressed, recurrent, moderate, with psychosis; methamphetamine dependence, moderate; opioid abuse, moderate; cannabis abuse, moderate. Medical: Hepatitis C. Stressors: Moderate psychosocial stressors. HISTORY OF PRESENT ILLNESS Please see initial psychiatric evaluation for details. PAST PSYCHIATRIC HISTORY Please see initial psychiatric evaluation for details. PAST MEDICAL HISTORY Please see initial psychiatric evaluation for details. HOSPITAL COURSE The patient was [facility] and was oriented to the hospital environment. Routine p.r.n. medications were initiated, and she was started back on her Seroquel and Prozac and detox protocol was initiated as the patient was exhibiting some acute psychosis and was closely monitored. She was taking the medications regularly and was tolerating them fairly well and was able to show a decent and therapeutic response and was willing to continue treatment on an outpatient basis and as such, it was decided that she will be discharged home. DISCHARGE MEDICATIONS Prozac 40 mg a day for depression and Seroquel 200 mg at bedtime for depression. DISCHARGE CONDITION Stable. PROGNOSIS Fair. Unit #: [id number] #: [id number] Patient: ALISA GAUTHIER Dictated by... New Barros/jonathon TD: 06/04/2016 06:33 JOB #: [id number] DISCHARGE SUMMARY Page 1 of 1 X Rodrick Torres MD DISCHARGE SUMMARY
--- NOTE | ~2016-05-30 | HP ---
Unit #: [id number] #: [id number] Patient: ALISA GAUTHIER [id number] [facility] [address] [place] [address] [id number] I MR#: [id number] NAME: ALISA GAUTHIER ROOM: P203 Age: 45 Sex: F Admission Date: 05/30/2016 : 1970 Attending Physician: Rodrick Torres M.D. Admitting Physician: Rodrick Torres M.D. Primary Care Physician: Primary Care Physician No HISTORY AND PHYSICAL NOTE Alisa is a 45 year old admitted to [address] [place] [address] with depression. She was just discharged from this facility. The patient was seen and H and P dated 05/23/2016 was reviewed. This is current. No changes. Please see H and P dated 05/23/2016. Dictated by... Stella Garcia P.A.-C. for [place]/candelario TD: 05/30/2016 23:10 JOB #: [id number] HISTORY AND PHYSICAL Page 1 of 1 X Stella Garcia HISTORY AND PHYSICAL
--- NOTE | ~2016-05-30 | PN ---
Unit #: [id number] #: [id number] Patient: ALISA GAUTHIER [id number] [facility] [address] [place] [address] [id number] I MR#: [id number] NAME: ALISA GAUTHIER. ROOM: P179 Age: 45 Sex: F Admission Date: 05/30/2016 : 1970 Attending Physician: Rodrick Torres M.D. Admitting Physician: Rodrick Torres M.D. Primary Care Physician: Primary Care Physician Marlyn ALLEN PROGRESS NOTES DATE 06/03/2016 DISCUSSION Ms. Gauthier is a 45-year-old white female who was seen today and chart was reviewed and case was discussed with the staff. She has been anxious, withdrawn though has not shown any agitation, irritability and has been calm and cooperative though has been very disorganized with persistent depressive symptoms with thought blocking, paranoia and feelings of hopelessness with suicidal ideations. MENTAL STATUS EXAMINATION Middle-aged white female who was casually dressed with fair personal hygiene and appears to be in no acute distress or discomfort. She was awake and alert on interaction with intact orientation. Her mood was anxious and depressed with congruent affect. Her speech is slow and goal-directed. She reports having suicidal ideation but denies any homicidal ideations. Her insight and judgement remains significantly impaired. TREATMENT PLAN 1. Will continue on current medications and treatment protocol. Will monitor her response to medications and make further adjustments as needed. 2. Will continue to follow up. Dictated by... New Barros/seble TD: 06/03/2016 15:58 JOB #: [id number] Unit #: [id number] #: [id number] Patient: ALISA GAUTHIERALEX PROGRESS NOTES Page 1 of 1 X Rodrick Torres MD PROGRESS NOTE
[2016-05-31 09:23] LABS: BASOPHIL# 0.1 X10e3 (0-0.3); BASOPHIL% 1.1 % (0-2.5); EOSINOPHIL# 0.1 X10e3 (0-0.7); EOSINOPHIL% 2.7 % (0.0-7.0); HEMATOCRIT 40.1 % (35.0-45.0); HEMOGLOBIN 13.3 gm/dL (12.0-16.0); LYMPHOCYTE# 1.7 X10e3 (1.0-3.5); LYMPHOCYTE% 33.2 % (17.0-45.0); MEAN CELL VOLUME 85.4 FL (83-96); MEAN CORPUSCULAR HEMOGLOBIN 28.2 PG (28-34); MEAN CORPUSCULAR HGB CONC 33.1 g/dL (30-36); MEAN PLATELET VOLUME 8.8 FL (6.5-11.5); MONOCYTE# 0.7 X10e3 (0-1.0); NEUTROPHIL# 2.6 X10e3 (1.5-7.1); PLATELET COUNT 299 X10e3 (140-420); WHITE BLOOD COUNT 5.3 X10e3 (4.0-10.5)
[2016-05-31 09:47] LABS: THYROID STIMULATING HORMONE 0.76 uIU/ml (0.34-5.60)
[2016-05-31 09:49] LABS: DIFF IND NO
[2016-05-31 09:54] LABS: FREE THYROXIN (T4) 1.53 ng/dL (0.58-1.64)
[2016-05-31 10:16] LABS: BILIRUBIN,TOTAL 1.1 mg/dL (0.2-2.0); BUN/CREATININE RATIO 16.66; CALCIUM SERUM 9.8 mg/dL (8.4-10.2); CREATININE SERUM 0.6 mg/dL (0.6-1.4); GLOM FILT RATE Estimated 111.6 mL/min (>60); POTASSIUM 3.6 mmol/L (3.5-5.1); PROTEIN TOTAL SERUM 7.3 g/dL (6.0-8.3)
[2016-06-04 09:38] LABS: URINE BILIRUBIN NEG (NEG); URINE BLOOD NEG (NEG); URINE COLOR YELLOW; URINE GLUCOSE NEG (NEG); URINE KETONE NEG (NEG); URINE LEUKOCYTE ESTERASE NEG (NEG); URINE NITRATE NEG (NEG); URINE PH 8.5 (5-8); URINE PROTEIN NEG (NEG); URINE SPECIFIC GRAVITY 1.019 (1.003-1.035)
[2016-06-04 10:46] LABS: AMPHETAMINE NEG (NEG); BARBITURATES NEG (NEG); BENZODIAZEPINES NEG (NEG); COCAINE NEG (NEG); MARIJUANA POS (NEG); OPIATES NEG (NEG); TRICYCLIC ANTIDEPRESSANTS POS (NEG); U METHADONE NEG (NEG)
== END 2016-06-04 15:05 | disposition home or self-care (01) | DRG 885 ==
LOC: POF 10:46 → C2A 13:21 → P2S 13:31 → P1S 05-31 09:18 → P1E 06-02 13:04
PROVIDERS: Psychiatry & Neurology Psychiatry
DX: F31.32 Bipolar disorder, current episode depressed, moderate (principal); F15.20 Other stimulant dependence, uncomplicated; F29 Unspecified psychosis not due to a substance or known physiological condition; F11.10 Opioid abuse, uncomplicated; Z56.0 Unemployment, unspecified; B19.20 Unspecified viral hepatitis C without hepatic coma
CPT/HCPCS: 80053; 80307; 81003; 84439; 84443; 84703; 85025; J3486

== ENCOUNTER 2016-06-16 14:43 | Emergency (ER) | payer MEDICAID ==
--- NOTE | ~2016-06-16 | CR170 ---
[facility] A Service of [facility] & [facility] RADIOLOGY TEXT RESULTS PATIENT: ALISA GAUTHIER LOCATION: [facility] : 74 UNIT #: [id number] AGE: [address]: Mario Garcia MD SEX: F ORDER DR: [id number] [facility] [address]. [place], [place] [address] [id number] MR#: [id number] Acc #: [id number] NAME: ALISA GAUTHIER : 1970 SEX: F STUDY DATE/TIME: 06/16/2016 13:41 UNIT: [facility] ROOM: STUDY DESCRIPTION: CR Knee 2 Views Rt Attending Physician: Mario Garcia M.D. Ordering Physician: Mario Garcia M.D. Primary Care Physician: Primary Care Physician No MEDICAL IMAGING REPORT This report is preliminary unless electronic signature is present EXAM Right knee 2 views INDICATIONS Right knee pain for 2 days. No known injury. No comparisons. FINDINGS There is postsurgical change of the patella. There is soft tissue swelling anterior to the patella. There is a small knee joint effusion. No fracture or dislocation. IMPRESSION Postoperative change of the patella. Small joint effusion. Soft tissue swelling anterior to the patella. Dictated by... Jon Hernandez M.D. THIS IS AN ELECTRONICALLY VERIFIED REPORT Jon Hernandez M.D. at 06/17/2016 7:54 AM HAILE/sloan TD: 06/16/2016 14:28 JOB #: [id number] MEDICAL IMAGING REPORT Page 1 of 1 COPY
== END 2016-06-16 14:55 | disposition home or self-care (01) ==
LOC: CED 14:43
DX: S86.911A Strain of unspecified muscle(s) and tendon(s) at lower leg level, right leg, initial encounter (principal); F31.9 Bipolar disorder, unspecified; F17.200 Nicotine dependence, unspecified, uncomplicated; Z88.0 Allergy status to penicillin; X58.XXXA Exposure to other specified factors, initial encounter
CPT/HCPCS: 73560; 99283

== ENCOUNTER 2016-06-16 19:48 | Inpatient (IN) | payer MEDICAID ==
--- NOTE | ~2016-06-16 | DS ---
Unit #: [id number] #: [id number] Patient: ALISA GAUTHIER [id number] [facility] [address] [place] [address] [id number] I MR#: [id number] NAME: ALISA GAUTHIER ROOM: P179 Age: 45 Sex: F Admission Date: 06/16/2016 : 1970 Discharge Date: 06/22/2016 Attending Physician: Rodrick Torres M.D. Primary Care Physician: Primary Care Physician No DISCHARGE SUMMARY IDENTIFYING DATA Ms. Gauthier is a 45-year-old single white female, who is a resident of [place], [place], and is known to us from previous encounter, who was self-referred to the hospital on a voluntary basis. DISCHARGE DIAGNOSES Psychiatric: Bipolar disorder, most recent episode depressed, recurrent, moderate, without psychotic features; opioid dependence, moderate and acute withdrawals; cocaine dependence, moderate; methamphetamine dependence, moderate; cannabis dependence, moderate. Medical: Hepatitis C, knee pain. Stressors: Moderate psychosocial stressors. HISTORY OF PRESENT ILLNESS Please see initial psychiatric evaluation for details. PAST PSYCHIATRIC HISTORY Please see initial psychiatric evaluation for details. PAST MEDICAL HISTORY Please see initial psychiatric evaluation for details. HOSPITAL COURSE The patient was [facility] and was oriented to the hospital environment. Routine p.r.n. medications were initiated, and she was started back on her home medications and medications were adjusted and she was closely monitored. She was taking medications regularly and was tolerating them fairly well and was seemed to be minimally interactive with treatment and not really participating very much in treatment, once again wanted to go home, and has history of poor compliance with outpatient treatment recommendations, was strongly encouraged and motivated to come to the outpatient treatment program after being discharged from the hospital and as such, it was decided that she will be discharged home and will continue treatment on an outpatient basis. DISCHARGE MEDICATIONS Seroquel 200 mg at bedtime for bipolar, Neurontin 400 mg t.i.d. for neuropathy, Prozac 40 mg a day for depression, Valtrex 1000 mg b.i.d. for viral infection. DISCHARGE CONDITION Stable. Unit #: [id number] #: [id number] Patient: ALISA GAUTHIER TRISTIAN Izquierdo. Dictated by... New Barros/jonathon TD: 06/22/2016 07:07 JOB #: [id number] DISCHARGE SUMMARY Page 1 of 1 X Rodrick Torres MD DISCHARGE SUMMARY
--- NOTE | ~2016-06-16 | HP ---
Unit #: [id number] #: [id number] Patient: ALISA GAUTHIER [id number] [place] [address] [id number] I MR#: [id number] NAME: ALISA GAUTHIER. ROOM: P179 Age: 45 Sex: F Admission Date: 06/16/2016 : 1970 Attending Physician: Rodrick Torres M.D. Admitting Physician: Rodrick Torres M.D. Primary Care Physician: Primary Care Physician No HISTORY AND PHYSICAL HISTORY OF PRESENT ILLNESS Alisa is a 45 year old admitted to [facility] because of her continued abuse of alcohol. She has had numerous admissions to this facility. PAST MEDICAL HISTORY 1. Long history of alcohol abuse. 2. Hepatitis C. 3. History of cervical dysplasia. 4. Patient recently dislocated her patella. She is currently in an immobilizer. PAST SURGICAL HISTORY Nothing reported. ALLERGIES Penicillin. SOCIAL HISTORY Smokes 1 pack per day. Drinks fifth of vodka on a daily basis. Denies illicit drug use, although she does have a history of. FAMILY HISTORY Medically noncontributory. REVIEW OF SYSTEMS CONSTITUTIONAL: No fever or chills. HEENT: Denies any sore throat, ear pain or runny nose. CARDIOVASCULAR: Denies chest pain, irregular heart rhythm or palpitations. CHEST: Denies shortness of breath or cough. No hemoptysis. GASTROINTESTINAL: Denies nausea, vomiting, diarrhea or chronic constipation. ENDOCRINE: Denies history of increased thirst or urination. No recent significant weight loss or gain. GENITOURINARY: Denies dysuria, frequency, or hematuria. SKIN: Denies any rashes. HEMATOLOGIC: Denies history of increased bleeding or bruising. MUSCULOSKELETAL: Denies any hot, swollen joints. No generalized muscle pain. NEUROLOGIC: Denies problems with vision or speech. No frequent, severe headaches. No numbness, tingling or weakness in any extremities. Denies loss of bladder or bowel control. CURRENT MEDICATIONS Unit #: [id number] #: [id number] Patient: ALISA GAUTHIER Detox protocol. PHYSICAL EXAMINATION GENERAL: Alert, well-nourished, in no apparent distress. VITAL SIGNS: Blood pressure 100/58, heart rate 80, respirations 16, temperature 98.6. WEIGHT: 130. HEIGHT: 5 feet 5 inches. SKIN: Warm and dry without rash or lesion. HEENT: Normocephalic. TMs not viewed. Oral and nasal passages clear. Conjunctivae clear. PERRLA. EOMs intact. NECK: Supple without lymphadenopathy or thyromegaly. HEART: Regular rate and rhythm without murmur. LUNGS: Clear. ABDOMEN: Soft, nontender. : Not done. EXTREMITIES: Right knee in a long immobilizer. She ambulates without difficulty. NEUROLOGICAL: Unable to complete extended exam. She does move all extremities without focal deficit. Hand strickler attendant is equal. Gait is normal except she does have an immobilizer along the right lower extremity. IMPRESSION 1. Psychiatric admission. 2. Recent dislocation of her patella. She is in an immobilizer. RECOMMENDATIONS PSYCHIATRIC: Per psychiatrist. MEDICAL: 1. See no contraindications to participate in facility's activities. 2. She knows to follow up with PCP/orthopedics upon discharge. Dictated by... Stella Garcia P.A.-C. for [place]/seble TD: 06/17/2016 19:40 JOB #: [id number] HISTORY AND PHYSICAL Page 1 of 1 X Stella Garcia HISTORY AND PHYSICAL
--- NOTE | ~2016-06-16 | PN ---
Unit #: [id number] #: [id number] Patient: ALISA GAUTHIER [id number] [facility] [address] [place] [address] [id number] I MR#: [id number] NAME: ALISA GAUTHIER. ROOM: P179 Age: 45 Sex: F Admission Date: 06/16/2016 : 1970 Attending Physician: Rodrick Torres M.D. Admitting Physician: Rodrick Torres M.D. Primary Care Physician: Marlyn Primary Care Physician ALEJANDRO PROGRESS NOTES DATE 06/21/2016 DISCUSSION Ms. Gauthier is a 45-year-old white female who with substance abuse and mood disorder who was seen today and chart was reviewed and case was discussed with the staff. She has been remains anxious, withdrawn and rather seclusive to herself with persistent (1) . She has been taking medication and tolerating them fairly well with no reported side effects. MENTAL STATUS EXAMINATION Middle-aged white female who was casually dressed with fair personal hygiene, appears to be in no acute distress or discomfort. She was awake and alert on interaction with intact orientation. Her mood was anxious and depressed with congruent affect. Patient denies any suicidal or homicidal ideations. Also, denies any auditory or visual hallucinations. Her insight and judgement remains significantly impaired. TREATMENT PLAN 1. We will continue her on her current medications and treatment protocol. We will monitor her response and make further adjustments as needed. 2. We will continue to follow up. Dictated by... [place] Barros/georgie TD: 06/21/2016 08:55 JOB #: [id number] Unit #: [id number] #: [id number] Patient: ALISA GAUTHIER PEAALEX PROGRESS NOTES Page 1 of 1 X Rodrick Torres MD PROGRESS NOTE
--- NOTE | ~2016-06-16 | PN ---
Unit #: [id number] #: [id number] Patient: ALISA GAUTHIER [id number] [facility] [address] [place] [address] [id number] I MR#: [id number] NAME: ALISA GAUTHIER ROOM: P179 Age: 45 Sex: F Admission Date: 06/16/2016 : 1970 Attending Physician: Rodrick Torres M.D. Admitting Physician: Rodrick Torres M.D. Primary Care Physician: Primary Care Physician Marlyn ALLEN PROGRESS NOTES DATE OF SERVICE: 06/19/2016 SUBJECTIVE Ms. Gauthier is a 45-year-old white female with substance abuse and mood disorder, who was seen today and chart was reviewed, and case was discussed with the staff. She has been anxious, withdrawn, and rather seclusive to herself. Meanwhile, she has been cooperative with treatment recommendations and has been taking the medications and tolerating them fairly well with no reported side effects. MENTAL STATUS EXAMINATION Middle-aged white female who was casually dressed with marginal personal hygiene, appears to be in distress or discomfort. She was awake and alert with impaired attention and concentration. Her mood was anxious with a congruent affect. She denies any suicidal or homicidal ideation. Her insight and judgment remain significantly impaired. TREATMENT PLAN 1. We will continue on her current medications and treatment protocol. We will monitor her response to the medication and make further adjustments as needed. 2. We will continue to follow up. Dictated by... [place] Barros/jonathon TD: 06/19/2016 14:34 JOB #: [id number] [facility] PROGRESS NOTES Page 1 of 1 X Rodrick Torres MD X PROGRESS NOTE
--- NOTE | ~2016-06-16 | PN ---
Unit #: [id number] #: [id number] Patient: ALISA GAUTHIER [id number] [facility] [address] [place] [address] [id number] I MR#: [id number] NAME: ALISA GAUTHIER. ROOM: P179 Age: 45 Sex: F Admission Date: 06/16/2016 : 1970 Attending Physician: Rodrick Torres M.D. Admitting Physician: Rodrick Torres M.D. Primary Care Physician: Primary Care Physician Marlyn CARRASQUILLO NOTES DATE OF SERVICE 06/20/2016 DISCUSSION Ms. Gauthier is a 45-year-old white female who was seen today and chart was reviewed and case was discussed with the staff. She has been anxious, withdrawn and rather seclusive to herself. Meanwhile, she has been cooperative with treatment recommendations as she has been taking the medications and tolerating them fairly well with no reported side effects. MENTAL STATUS EXAMINATION Middle-aged white female who was casually dressed with fair personal hygiene, appears to be in no acute distress or discomfort. She was awake and alert on interaction with intact orientation. Her mood was anxious with congruent affect. She denies any suicidal or homicidal ideations. Also, denies any auditory or visual hallucinations. Her insight and judgement remains slightly impaired. TREATMENT PLAN 1. We will continue her on her current medications and treatment protocol. We will monitor her response to the medication and make further adjustments as needed. 2. We will continue to follow up. Dictated by... [place] Barros/candelario TD: 06/21/2016 04:29 JOB #: [id number] Unit #: [id number] #: [id number] Patient: ALISA GAUTHIER PEAALEX PROGRESS NOTES Page 1 of 1 X Rodrick Torres MD PROGRESS NOTE
--- NOTE | ~2016-06-16 | PA ---
Unit #: [id number] #: [id number] Patient: ALISA GAUTHIER [id number] [facility] [address] [place] [address] [id number] I MR#: [id number] NAME: ALISA GAUTHIER ROOM: P179 Age: 45 Sex: F Admission Date: 06/16/2016 : 1970 Date of Assessment: 06/16/2016 Attending Physician: Rodrick Torres M.D. Admitting Physician: Rodrick Torres M.D. Primary Care Physician: Primary Care Physician No PSYCHIATRIC ASSESSMENT DATE OF SERVICE 06/17/2016. IDENTIFYING DATA Ms. Gauthier is a 45-year-old single white female, who is a resident of [place], [place], and is known to us from previous encounter, and was self-referred to the hospital on a voluntary basis. CHIEF COMPLAINT "I have been self medicating with, Lortab, marijuana, and cocaine". HISTORY OF PRESENT ILLNESS Ms. Gauthier is a 45-year-old white female with extensive history of substance abuse and dependence, and has become a frequent flyer to the inpatient hospitalization as she comes to the hospital frequently and then refuses to follow up with any treatment recommendation and relapses soon after she leaves the hospital to an extent at this time, so I feel like she relapses just so she can get into the hospital as when she comes to the hospital, she wants to stay longer and refuses to leave and is hard for us to even get discharged from the hospital and as mentioned earlier, does not follow up with outpatient treatment recommendation. She apparently has been going to other emergency rooms frequently and was in [facility] and then she got out of there and walked to the outpatient building next door, and then she was transferred to us here and reports that she has been trying to self medicate herself with Lortab, marijuana, and cocaine and that she has attempted to get into a group home house and reports that her knee became dislocated yesterday and she has been in significant pain and she was sent to [facility] to address knee pain and obtain medical clearance and she continues to report significant leg pain and reports suicidal ideation with plan to hang herself. She reports experiencing paranoia that people are behind her and attempting to do harm and reports visual hallucination of people and does report feelings of hopelessness and helplessness, and suicidal ideations and as such, recommendation for inpatient level of care for safety and stabilization was made and the patient was transferred to us. SUBSTANCE ABUSE HISTORY The patient reports extensive history of alcohol, cannabis, cocaine, opioids, and amphetamine abuse, and more recently it appears that opioids, cocaine, and marijuana has become her drug of choice. PAST PSYCHIATRIC HISTORY Unit #: [id number] #: [id number] Patient: ALISA GAUTHIER The patient has a history of multiple inpatient psychiatric hospitalizations at [facility] with outpatient treatment in the past, and currently she is supposed to be on Seroquel and Neurontin and Prozac, but has been noncompliant with medications and has been decompensating. PAST MEDICAL HISTORY Significant for hepatitis C. ALLERGIES Penicillin. PERSONAL AND SOCIAL HISTORY A 45-year-old white female, who reports that she is single, unemployed, and essentially homeless and has poor social support system. MENTAL STATUS EXAMINATION Middle-aged white female, who was casually dressed with fair personal hygiene, appears to be in no acute distress or discomfort. She was awake and alert on interaction with intact orientation to time, place, and person. Her mood was anxious and depressed with a congruent affect. Her speech was slow and restricted in content. Her thought processes were disorganized with some looseness of associations and flight of ideas and suicidal ideations with an intent and plan. Her insight and judgment remain significantly impaired. DIAGNOSTIC IMPRESSION Psychiatric: Bipolar disorder, most recent episode depressed, recurrent, moderate, without psychotic features; opioid dependence, moderate and acute withdrawals; cocaine dependence, moderate; methamphetamine dependence, moderate; cannabis dependence, moderate. Medical: Hepatitis C and knee pain. Stressors: Moderate psychosocial stressors. TREATMENT PLAN 1. The patient has presented with history of mood disorder and substance abuse and has been decompensating and will need inpatient hospitalization for detoxification, safety, and stabilization. We will start her on detox protocol. We will closely monitor for any worsening withdrawal symptoms. 2. Supportive therapy was provided to the patient. 3. Safe, structured, and nourishing environment will be provided. ESTIMATED LENGTH OF STAY 5 to 7 days. ABILITY TO HELP SELF Limited. WILLINGNESS TO HELP SELF The patient appears to be willing to help self. STRENGTHS 1. Communicative. 2. Cooperative. PROBLEMS 1. Chronic dysphoric symptoms. 2. Poor social support system. Unit #: [id number] #: [id number] Patient: ALISA GAUTHIER DISCHARGE CRITERIA This will be contingent upon the patient's ability to show resolution of her depression and anxiety and her ability to stay safe to herself and others particularly after discharge from the hospital. Dictated by... [place] Barros/jonathon TD: 06/17/2016 07:00 JOB #: [id number] PSYCHIATRIC ASSESSMENT Page 1 of 1 X Rodrick Torres MD X PSYCHIATRIC ASSESSMENT
--- NOTE | ~2016-06-16 | PN ---
Unit #: [id number] #: [id number] Patient: ALISA GAUTHIER [id number] [facility] [address] [place] [address] [id number] I MR#: [id number] NAME: ALISA GAUTHIER. ROOM: P179 Age: 45 Sex: F Admission Date: 06/16/2016 : 1970 Attending Physician: Rodrick Torres M.D. Admitting Physician: Rodrick Torres M.D. Primary Care Physician: Primary Care Physician Marlyn ALLEN PROGRESS NOTES DATE 06/18/2016 DISCUSSION Ms. Gauthier is a 45-year-old white female who was seen today and chart was reviewed and case was discussed with the staff. She remains anxious, withdrawn and rather seclusive to herself. Meanwhile, she has been cooperative with treatment recommendations and has been taking medications and tolerating them fairly well. MENTAL STATUS EXAMINATION Middle-aged white female who was casually dressed with fair personal hygiene and appears to be in no acute distress or discomfort. She was awake and alert on interaction with intact orientation. Her mood was anxious and depressed with congruent affect. She denies any suicidal or homicidal ideations and also denies any auditory or visual hallucinations. Her insight and judgement remains slightly impaired. TREATMENT PLAN 1. Will continue on current medications and treatment protocol. Will monitor her response to the medications and make further adjustments as needed. 2. Will continue to follow up. Dictated by... [place] Barros/seble TD: 06/18/2016 17:54 JOB #: [id number] Unit #: [id number] #: [id number] Patient: ALISA GAUTHIER PROGRESS NOTES Page 1 of 1 X Rodrick Torres MD PROGRESS NOTE
[2016-06-17 12:43] LABS: BASOPHIL% 0.4 % (0-2.5); EOSINOPHIL# 0.1 X10e3 (0-0.7); EOSINOPHIL% 1.9 % (0.0-7.0); HEMATOCRIT 40.3 % (35.0-45.0); HEMOGLOBIN 13.4 gm/dL (12.0-16.0); LYMPHOCYTE# 1.9 X10e3 (1.0-3.5); LYMPHOCYTE% 26.1 % (17.0-45.0); MEAN CELL VOLUME 86.3 FL (83-96); MEAN CORPUSCULAR HEMOGLOBIN 28.6 PG (28-34); MEAN CORPUSCULAR HGB CONC 33.1 g/dL (30-36); MEAN PLATELET VOLUME 8.4 FL (6.5-11.5); MONOCYTE# 0.9 X10e3 (0-1.0); MONOCYTE% 12.1 % (3.0-12.0); NEUTROPHIL# 4.4 X10e3 (1.5-7.1); NEUTROPHIL% 59.5 % (40-75); PLATELET COUNT 288 X10e3 (140-420); RED BLOOD COUNT 4.68 X10e (3.90-5.30); RED CELL DISTRIBUTION WIDTH 14.4 % (11.0-15.5); WHITE BLOOD COUNT 7.4 X10e3 (4.0-10.5)
[2016-06-17 12:50] LABS: DIFF IND NO
[2016-06-17 12:53] LABS: ALBUMIN SERUM 3.9 g/dL (3.5-5.0); BILIRUBIN,TOTAL 1.3 mg/dL (0.2-2.0); BUN/CREATININE RATIO 11.66; CALCIUM SERUM 9.5 mg/dL (8.4-10.2); CREATININE SERUM 0.6 mg/dL (0.6-1.4); GLOM FILT RATE Estimated 111.6 mL/min (>60); POTASSIUM 3.7 mmol/L (3.5-5.1); PROTEIN TOTAL SERUM 7.3 g/dL (6.0-8.3)
== END 2016-06-22 15:10 | disposition home or self-care (01) | DRG 885 ==
LOC: P1E 19:48
PROVIDERS: Psychiatry & Neurology Psychiatry
PROC: HZ2ZZZZ Detoxification Services for Substance Abuse Treatment (ICD-10-PCS; principal; 2016-06-16)
DX: F31.32 Bipolar disorder, current episode depressed, moderate (principal); F14.20 Cocaine dependence, uncomplicated; F11.23 Opioid dependence with withdrawal; F15.20 Other stimulant dependence, uncomplicated; F12.20 Cannabis dependence, uncomplicated; B19.20 Unspecified viral hepatitis C without hepatic coma; M25.569 Pain in unspecified knee; Z88.0 Allergy status to penicillin; F17.210 Nicotine dependence, cigarettes, uncomplicated; G62.9 Polyneuropathy, unspecified
CPT/HCPCS: 80053; 85025; 86592

== ENCOUNTER 2016-08-31 10:33 | Inpatient (IN) | payer MEDICAID ==
--- NOTE | ~2016-08-31 | DS ---
Unit #: [id number] #: [id number] Patient: ALISA GAUTHIER [id number] [facility] [address] [place] [address] [id number] I MR#: [id number] NAME: ALISA GAUTHIER ROOM: [facility] Age: 46 Sex: F Admission Date: 08/31/2016 : 1970 Discharge Date: 09/06/2016 Attending Physician: Rodrick Torres M.D. Primary Care Physician: Primary Care Physician No DISCHARGE SUMMARY IDENTIFYING DATA Ms. Gauthier is a 46-year-old single white female, who is a resident of [place], [place], and is known to us from previous encounter, was self-referred to the hospital on voluntary basis. CHIEF COMPLAINT "I stopped taking my medications." DISCHARGE DIAGNOSES Psychiatric: Bipolar disorder, most recent episode depressed, recurrent, moderate, without psychotic features. Medical: Migraine headaches. Stressors: Mild psychosocial stressors. HISTORY OF PRESENT ILLNESS Please see initial psychiatric evaluation for details. PAST PSYCHIATRIC HISTORY Please see initial psychiatric evaluation for details. PAST MEDICAL HISTORY Please see initial psychiatric evaluation for details. HOSPITAL COURSE The [facility] and was oriented to the hospital. Routine p.r.n. medications were initiated, and she was started back on her home medications and medications were adjusted. She was started back on her Seroquel and Prozac and was closely monitored. She was taking the medications regularly and was tolerating them fairly well and was able to show a fairly decent therapeutic response with improvement in depression and anxiety. Denying any suicidal ideations, intent, or plan and was willing to continue treatment on an outpatient basis and as such, it was decided that she will be discharged home and will continue treatment on an outpatient basis. DISCHARGE MEDICATIONS 1. Prozac 40 mg a day for depression. 2. Seroquel 100 mg at bedtime for depression. DISCHARGE CONDITION Stable. PROGNOSIS Unit #: [id number] #: [id number] Patient: ALISA GAUTHIER Fair. Dictated by... [place] Barros/jonathon TD: 09/06/2016 06:57 JOB #: [id number] DISCHARGE SUMMARY Page 1 of 1 X Rodrick Torres MD DISCHARGE SUMMARY
--- NOTE | ~2016-08-31 | PN ---
Unit #: [id number] #: [id number] Patient: ALISA GAUTHIER [id number] [facility] [address] [place] [address] [id number] I MR#: [id number] NAME: ALISA GAUTHIER. ROOM: [facility] Age: 46 Sex: F Admission Date: 08/31/2016 : 1970 Attending Physician: Rodrick Torres M.D. Admitting Physician: Rodrick Torres M.D. Primary Care Physician: Primary Care Physician Marlyn ALLEN PROGRESS NOTES DATE OF SERVICE 09/05/2016 DISCUSSION Ms. Shearer is a 46-year-old white female who was seen today. Chart was reviewed and case was discussed with the staff. She has been anxious, withdrawn, and rather seclusive to herself. Meanwhile, she has been cooperative with treatment recommendations and has been taking the medications and tolerating them fairly well with no reported side effects. MENTAL STATUS EXAMINATION Middle-aged white female who is casually dressed with fair personal hygiene, appears to be in no acute distress or discomfort. The patient was awake and alert on interaction with intact orientation. Her mood is anxious with congruent affect. Speech is slow and goal-directed. She denies any suicidal or homicidal ideations and also denies any auditory or visual hallucinations. His insight and judgment remain slightly impaired. TREATMENT PLAN 1. We will continue him on his current medications and treatment protocol. We will monitor his response to the medications and make further adjustments as needed. 2. We will continue to follow up. Dictated by... [place] Barros/karang TD: 09/06/2016 11:50 JOB #: [id number] Unit #: [id number] #: [id number] Patient: ALISA GAUTHIER PROGRESS NOTES Page 1 of 1 X Rodrick Torres MD PROGRESS NOTE
--- NOTE | ~2016-08-31 | PN ---
Unit #: [id number] #: [id number] Patient: ALISA GAUTHIER [id number] [facility] [address] [place] [address] [id number] I MR#: [id number] NAME: ALISA GAUTHIER. ROOM: [facility] Age: 46 Sex: F Admission Date: 08/31/2016 : 1970 Attending Physician: Rodrick Torres M.D. Admitting Physician: Rodrick Torres M.D. Primary Care Physician: Primary Care Physician Marlyn ALLEN PROGRESS NOTES DATE 09/03/2016 DISCUSSION Ms. Gauthier is a 46-year-old white female who was seen today and chart was reviewed and case was discussed with the staff. She has been anxious, withdrawn and rather seclusive to herself. Meanwhile, she has been cooperative with treatment recommendations as she has been taking the medications and tolerating them fairly well with no reported side effects. MENTAL STATUS EXAMINATION Middle-aged white female who was casually dressed with fair personal hygiene, appears to be in no acute distress or discomfort. She was awake and alert on interaction with intact orientation. Her mood was anxious with congruent affect. She denies any suicidal or homicidal ideations. Her insight and judgement remains slightly impaired. TREATMENT PLAN 1. We will continue her on her current medications and treatment protocol. We will monitor her response to the medication and make further adjustments as needed. 2. We will continue to follow up. Dictated by... [place] Barros/candelario TD: 09/04/2016 16:35 JOB #: [id number] Unit #: [id number] #: [id number] Patient: ALISA GAUTHIER ALEJANDRO PROGRESS NOTES Page 1 of 1 X Rodrick Torres MD PROGRESS NOTE
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
--- NOTE | ~2016-08-31 | PN ---
Unit #: [id number] #: [id number] Patient: ALISA GAUTHIER [id number] [facility] [address] [place] [address] [id number] MR#: [id number] NAME: ALISA GAUTHIER. ROOM: P259 Age: 46 Sex: F Admission Date: 08/31/2016 : 1970 Attending Physician: Rodrick Torres M.D. Admitting Physician: Rodrick Torres M.D. Primary Care Physician: Primary Care Physician Marlyn ALLEN PROGRESS NOTES DATE 09/01/2016 DISCUSSION Ms. Gauthier is a 46-year-old white female who was seen today and chart was reviewed and case was discussed with the staff. She has been anxious, withdrawn and seclusive to herself. Meanwhile, she has been cooperative with treatment recommendations as she has been taking the medications and tolerating them fairly well with no reported side effects. MENTAL STATUS EXAMINATION Middle-aged white female who was casually dressed with fair personal hygiene, appears to be in no acute distress or discomfort. She was awake and alert with impaired attention and concentration. Her mood was anxious with congruent affect. She denies any suicidal or homicidal ideations. Her insight and judgement remains . TREATMENT PLAN 1. We will continue . We will monitor her response and make further adjustments as needed. 2. We will continue to follow up. Dictated by... [place]ros/candelario TD: 09/01/2016 21:13 JOB #: [id number] Unit #: [id number] #: [id number] Patient: ALISA GAUTHIERALEX PROGRESS NOTES Page 1 of 1 X Rodrick Torres MD PROGRESS NOTE
--- NOTE | ~2016-08-31 | PN ---
Unit #: [id number] #: [id number] Patient: ALISA GAUTHIER [id number] [facility] [address] [place] [address] [id number] I MR#: [id number] NAME: ALISA GAUTHIER. ROOM: P259 Age: 46 Sex: F Admission Date: 08/31/2016 : 1970 Attending Physician: Rodrick Torres M.D. Admitting Physician: Rodrick Torres M.D. Primary Care Physician: Primary Care Physician Marlyn ALLEN PROGRESS NOTES DATE 09/02/2016 DISCUSSION Ms. Gauthier is a 46-year-old white female who was seen today and chart was reviewed and case was discussed with the staff. She has been anxious, withdrawn and rather seclusive to herself. Meanwhile, she has been cooperative with treatment recommendations and has been taking medications and tolerating them fairly well with no reported side effects. MENTAL STATUS EXAMINATION Middle-age white female who was casually dressed with fair personal hygiene and appears to be in no acute distress or discomfort. She was awake and alert on interactions with intact orientation. Her mood was anxious with congruent affect. She denies any suicidal or homicidal ideation. Her insight and judgement remains slightly impaired. TREATMENT PLAN 1. Will continue on current medications and treatment protocol. Will monitor her response to the medications and make further adjustments as needed. 2. Will continue to follow up. Dictated by... Rodrick Torres M.D. IAA/seble TD: 09/02/2016 22:34 JOB #: [id number] Unit #: [id number] #: [id number] Patient: ALISA GAUTHIER ALEJANDRO PROGRESS NOTES Page 1 of 1 X Rodrick Torres MD PROGRESS NOTE
--- NOTE | ~2016-08-31 | HP ---
Unit #: [id number] #: [id number] Patient: ALISA GAUTHIER [id number] [place] [address] [id number] I MR#: [id number] NAME: ALISA GAUTHIER. ROOM: P259 Age: 46 Sex: F Admission Date: 08/31/2016 : 1970 Attending Physician: Rodrick Torres M.D. Admitting Physician: Rodrick Torres M.D. Primary Care Physician: Primary Care Physician No HISTORY AND PHYSICAL HISTORY OF PRESENT ILLNESS Alisa is a 46 year old admitted to [address] [place] [address] with psychotic behavior. She has had other admissions to this facility. She is a poor historian so her history is taken from her chart. PAST MEDICAL HISTORY 1. Long history of alcohol abuse. 2. Hepatitis C. 3. History of cervical dysplasia. 4. History of dislocated patella. PAST SURGICAL HISTORY Nothing reported. ALLERGIES Penicillin. SOCIAL HISTORY Smokes one pack per day. Drinks a fifth of vodka on a daily basis. Denies illicit drug use. FAMILY HISTORY Medically noncontributory. REVIEW OF SYSTEMS She does not answer questions appropriately. There are no reports of nausea, vomiting or diarrhea. She has no cough or increased temperature. CURRENT MEDICATIONS 1. Minipress 1 mg q.h.s. 2. Neurontin 400 mg b.i.d. 3. Benadryl 25 mg t.i.d. 4. Milk of Magnesia p.r.n. 5. Maalox p.r.n. 6. Tylenol p.r.n. 7. Imitrex p.r.n. 8. Nicotine patch 14 mg q day 9. Mobic 15 mg q day 10. Seroquel 100 mg q day 11. Prozac 40 mg q day 12. Elimite cream times one application Unit #: [id number] #: [id number] Patient: ALISA GAUTHIER PHYSICAL EXAMINATION GENERAL: Alert, very disoriented lady appearing much much older than her stated age of 46, in no apparent distress. VITAL SIGNS: Blood pressure 130/86, heart rate 80, respirations 16, temperature 98.6. WEIGHT: 137 pounds. HEIGHT: 5'2". SKIN: Warm and dry without rash or lesion. HEENT: Normocephalic. TMs not viewed. Oral and nasal passages clear. Conjunctivae clear. Pupils equal, round and reactive to light and accommodation. Extraocular movements intact. NECK: Supple without lymphadenopathy or thyromegaly. HEART: Regular rate and rhythm without murmur. LUNGS: Clear. ABDOMEN: Soft, nontender. : Not done. EXTREMITIES: No evidence of cyanosis, clubbing or edema. Moves all extremities without focal deficit. NEUROLOGICAL: Unable to completed extended exam. She does move all extremities without focal deficit. Hand rehab/pre vocational counselor is equal and gait is normal. IMPRESSION 1. Psychiatric admission. 2. She is being treated for scabies. No rash is noted on admission. RECOMMENDATIONS PSYCHIATRIC: Per psychiatrist. MEDICAL: 1. I see no contraindications to participating in facility's activities. 2. Complete treatment for scabies. MEDICAL PROGNOSIS Good. MEDICAL CONDITION Stable. Dictated by... Stella Garcia P.A.-C. for [place]/candelario TD: 08/31/2016 21:46 JOB #: [id number] Unit #: [id number] #: [id number] Patient: ALISA GAUTHIER HISTORY AND PHYSICAL Page 1 of 1 X Stella Garcia HISTORY AND PHYSICAL
--- NOTE | ~2016-08-31 | A ---
[facility] Nutrition Therapy DATE: 09/01/16 Patient: ALISA GAUTHIER Physician: RAMONAIRF Address: [address] [place] [address] Room/Bed: [address], Zip: [place] [address] Admit Date: 08/31/16 Date of : [birth year] Height: 5 2 Weight: [id number] NUTRITIONAL ASSESSMENT: REASON: NUTRITION RISK POINT- CHEWING/SWALLOWING DIFFICULTY PATIENT ADMITTED FOR SI AND DEPRESSION PMH: HEP C, LONG HX ETOH ABUSE Anthropometrics: HT: 5'2", WT: 137#, BMI: 25.1 Labs: 09/01/16- K: 3.2, BUN: 5 Meds: NEURONTIN, SEROQUEL, PROZAC Assessment: PATIENT IS A 46 Y/O FEMALE ADMITTED FOR SI AND DEPRESSION. PATIENT IS CURRENTLY ON DISABILITY, UNEMPLOYED, LIVES AT [facility], SMOKES 1 PPD, AND HAS A HX OF ETOH, MARIJUANA, COCAINE, AND OPIATE ABUSE. PATIENT DENIES ANY CURRENT SUBSTANCE ABUSE AND HAS BEEN CLEAN FOR 71 DAYS. IT IS NOTED THAT PATIENT IS A POOR HISTORIAN, SHE IS DISORIENTED, AND SHE IS NOT ABLE TO ANSWER QUESTIONS APPROPRIATELY. PATIENT HAS A HX OF MULTIPLE INPATIENT PSYCH HOSPITALIZATIONS AND SHE HAS BEEN NON-COMPLIANT WITH HER MEDICATIONS. UPON ADMIT PATIENT STATED A POOR APPETITE WITH NO RECENT WEIGHT CHANGES. NURSING REPORTS FAIR PO INTAKES AND THAT PATIENT HAS DIFFICULTIES SWALLOWING AND MOUTH PAIN. PATIENT IS CURRENTLY ON A GI SOFT DIET, AND THERE ARE NO SKIN ISSUES NOTED ATT. Dx: INADEQUATE NUTRIENT INTAKE R/T CURRENT CONDITIONS, MOUTH PAIN AEB NEED FOR MECHANICALLY ALTERED DIET Intervention: GI SOFT DIET, MEDS PER MD, PSYCH Monitoring, Evaluation and Goals: 1. ADEQUATE PO INTAKES >50% OF MEALS 2. PREVENT, CORRECT MICRO/MACRO NUTRIENT DEFICIENCIES 3. WEIGHT; MAINTAIN CURRENT WEIGHT, PREVENT WEIGHT LOSS MONITOR: WEIGHTS, LABS, PO/FLUID INTAKES Recommendations: 1. CONTINUE GI SOFT DIET TOLERATED. OFFER SNACKS BETWEEN MEALS 2. IF PATIENT CONTINUES TO HAVE C/O SWALLOWING DIFFICULTIES AND MOUTH PAIN CONSULT MAINTENANCE PAINTER APPRENTICE FOR FURTHER EVALUATION 3. OBTAIN WEIGHTS ROUTINELY [facility] Nutrition Therapy DATE: 09/01/16 Patient: ALISA GAUTHIER Physician: RAMONAIRF Address: [address] [place] [address] Room/Bed: [address], Zip: [place] [address] Admit Date: 08/31/16 Date of : [birth year] Height: 5 2 Weight: [id number] 4. IF PO INTAKES ARE BELOW 50% OF MEALS PLEASE ORDER ENSURE BID TO PROMOTE ADEQUATE KCAL AND PROTEIN INTAKES RD TO F/U PER PROTOCOL AND PRN R/T PATIENT MILDLY COMPROMISED Respectfully, YENNI LONG, RD, LD [facility] cc: client file
--- NOTE | ~2016-08-31 | PN ---
Unit #: [id number] #: [id number] Patient: LAISA GAUTHIER [id number] [facility] [address] [place] [address] [id number] I MR#: [id number] NAME: ALISA GAUTHIER. ROOM: [facility] Age: 46 Sex: F Admission Date: 08/31/2016 : 1970 Attending Physician: Rodrick Torres M.D. Admitting Physician: Rodrick Torres M.D. Primary Care Physician: Primary Care Physician Marlyn ALLEN PROGRESS NOTES DATE 09/04/2016 DISCUSSION Ms. Gauthier is a 46-year-old white female who was seen today and chart was reviewed and case was discussed with the staff. She has been anxious, withdrawn and rather seclusive to herself. Meanwhile, she has been cooperative with treatment recommendations as she has been taking the medications and tolerating them fairly well with no reported side effects. MENTAL STATUS EXAMINATION Middle-aged white female who was casually dressed with fair personal hygiene, appears to be in no acute distress or discomfort. She was awake and alert with intact orientation. Her mood was anxious and depressed with congruent affect. She denies any suicidal or homicidal ideations. Her insight and judgement remains slightly impaired. TREATMENT PLAN 1. We will continue her on her current medications and treatment protocol. We will monitor her response to the medication and make further adjustments as needed. 2. We will continue to follow up. Dictated by... [place]ros/candelario TD: 09/05/2016 03:40 JOB #: [id number] Unit #: [id number] #: [id number] Patient: ALISA GAUTHIER ALEJANDRO PROGRESS NOTES Page 1 of 1 X Rodrick Torres MD PROGRESS NOTE
[2016-09-01 09:56] LABS: EOSINOPHIL# 0.1 X10e3 (0-0.7); EOSINOPHIL% 2.6 % (0.0-7.0); HEMATOCRIT 38.5 % (35.0-45.0); HEMOGLOBIN 13.1 gm/dL (12.0-16.0); LYMPHOCYTE# 1.4 X10e3 (1.0-3.5); LYMPHOCYTE% 33.9 % (17.0-45.0); MEAN CELL VOLUME 86.4 FL (83-96); MEAN CORPUSCULAR HEMOGLOBIN 29.3 PG (28-34); MEAN CORPUSCULAR HGB CONC 33.9 g/dL (30-36); MEAN PLATELET VOLUME 8.3 FL (6.5-11.5); MONOCYTE# 0.6 X10e3 (0-1.0); MONOCYTE% 13.2 % (3.0-12.0); NEUTROPHIL# 2.1 X10e3 (1.5-7.1); NEUTROPHIL% 49.3 % (40-75); PLATELET COUNT 249 X10e3 (140-420); RED BLOOD COUNT 4.46 X10e (3.90-5.30); RED CELL DISTRIBUTION WIDTH 13.2 % (11.0-15.5); WHITE BLOOD COUNT 4.2 X10e3 (4.0-10.5)
[2016-09-01 10:01] LABS: DIFF IND NO
[2016-09-01 10:12] LABS: ALBUMIN SERUM 4.1 g/dL (3.5-5.0); BILIRUBIN,TOTAL 0.9 mg/dL (0.2-2.0); BUN/CREATININE RATIO 8.33; CALCIUM SERUM 9.4 mg/dL (8.4-10.2); CREATININE SERUM 0.6 mg/dL (0.6-1.4); GLOM FILT RATE Estimated 110.9 mL/min (>60); POTASSIUM 3.2 mmol/L (3.5-5.1); PROTEIN TOTAL SERUM 7.2 g/dL (6.0-8.3)
[2016-09-04 11:47] LABS: URINE APPEARANCE CLOUDY; URINE BILIRUBIN NEG (NEG); URINE BLOOD NEG (NEG); URINE COLOR YELLOW; URINE GLUCOSE NEG (NEG); URINE KETONE NEG (NEG); URINE LEUKOCYTE ESTERASE TRACE (NEG); URINE NITRATE NEG (NEG); URINE PROTEIN NEG (NEG); URINE SPECIFIC GRAVITY 1.021 (1.003-1.035)
[2016-09-04 11:52] LABS: URBCS1 AUWI 0-2 /[HPF] (0-2); URINE BACTERIA AUWI 1+ (NEGATIVE); URINE SQUAMOUS EPITHELIAL CELL FEW /[HPF]
[2016-09-04 12:14] LABS: AMPHETAMINE POS (NEG); BARBITURATES NEG (NEG); BENZODIAZEPINES NEG (NEG); COCAINE NEG (NEG); MARIJUANA NEG (NEG); OPIATES NEG (NEG); TRICYCLIC ANTIDEPRESSANTS NEG (NEG); U METHADONE NEG (NEG)
== END 2016-09-06 16:00 | disposition home or self-care (01) | DRG 885 ==
LOC: P2L 12:05
PROVIDERS: Psychiatry & Neurology Psychiatry
DX: F31.32 Bipolar disorder, current episode depressed, moderate (principal); R45.851 Suicidal ideations; G43.909 Migraine, unspecified, not intractable, without status migrainosus; Z86.19 Personal history of other infectious and parasitic diseases; B86 Scabies; Z88.0 Allergy status to penicillin
CPT/HCPCS: 80053; 80307; 81003; 84703; 85025; J1200; J3486